=== PATIENT | female | born 1970 | race Caucasian/White ===

== ENCOUNTER 2017-03-25 10:18 | Inpatient (IN) | payer MEDICARE, OTHER ==
[2017-03-25] MEDS ORDERED: Ondansetron 4 MG Tab.DIS PO PRN (15:29)
[2017-03-25] MEDS ORDERED: Acetaminophen 325 MG Tab PO PRN (15:29)
[2017-03-25] MEDS ORDERED: Docusate Sodium 100 MG Cap PO PRN (15:36)
[2017-03-25] MEDS ORDERED: Hydrocortisone 1% Oint 28 GM Tube TOP PRN (15:36)
[2017-03-25] MEDS: Acetaminophen/oxyCODONE 325-5 MG Tab PO PRN ×2 (17:41→22:09)
[2017-03-25] MEDS: Ampicillin/Sulbactam Na 1.5 GM in Sodium Chloride 0.9% 100 ML IV SCH (17:42)
[2017-03-25] MEDS ORDERED: Non-Formulary Medication 1 Each (Gabapentin 800 MG) PO SCH (20:00)
[2017-03-25] MEDS ORDERED: buPROPion 100 MG Tab.SR PO SCH (20:00)
[2017-03-25] MEDS: Gabapentin 300 MG Cap PO SCH (20:29)
[2017-03-25] MEDS: Topiramate 100 MG Tab PO SCH (20:29)
[2017-03-25] MEDS: buPROPion 150 MG Tab.SR PO SCH (20:30)
[2017-03-25] MEDS: traZODone 50 MG Tab PO SCH (20:30)
[2017-03-25] MEDS: Gabapentin 100 MG Cap PO SCH (20:31)
[2017-03-25] MEDS: Amitriptyline 25 MG Tab PO SCH (20:31)
[2017-03-25] MEDS: CHANTIX 1 MG PO SCH (20:33)
[2017-03-25] MEDS: hydrOXYzine HCl 25 MG Tab PO PRN (22:08)
[2017-03-26] MEDS: Ampicillin/Sulbactam Na 1.5 GM in Sodium Chloride 0.9% 100 ML IV SCH ×5 (00:07→23:22)
[2017-03-26] MEDS: hydrOXYzine HCl 25 MG Tab PO PRN ×3 (06:04→19:44)
[2017-03-26] MEDS: Acetaminophen/oxyCODONE 325-5 MG Tab PO PRN ×3 (06:05→19:44)
[2017-03-26] MEDS: Gabapentin 300 MG Cap PO SCH ×3 (08:35→19:42)
[2017-03-26] MEDS: Aspirin 81 MG Tab.EC PO SCH (08:36)
[2017-03-26] MEDS: Gabapentin 100 MG Cap PO SCH ×3 (08:36→19:43)
[2017-03-26] MEDS: buPROPion 150 MG Tab.SR PO SCH ×2 (08:37→19:42)
[2017-03-26] MEDS: Topiramate 100 MG Tab PO SCH ×2 (08:38→19:43)
[2017-03-26] MEDS: CHANTIX 1 MG PO SCH ×2 (08:42→20:35)
--- NOTE | 2017-03-26 09:09 | PCM.HP ---
H&P History of Present Illness - General Date of Service: 03/26/17 Admit Problem/Dx: Admission Diagnosis/Problem Admission Diagnosis/Problem Status post total knee replacement, right Source of Information: Patient, Old Records History Limitations: Reports: No Limitations - History of Present Illness Initial Comments - Free Text/Narative: Patient admitted swing bed yesterday afternoon s/p right total knee replacement. Had surgery in [place] by Dr. Edmonds on March 17. Was noted to have a sore red pustule to her right inner thigh on Friday and was concerning for infection. Incision and drainage done to the area and culture obtained in [place]. No results noted yet from the culture. Was started on Unasyn and Vancomycin for this infection but was not felt to be related to her surgery. Transferred to [facility] [facility] for ongoing rehab, pain control and IV antibiotics. Has PICC line intact. Location: Reports: Lower Extremity, Right (surgical site and open wound to thigh ) Quality: Reports: Throbbing Severity: Severe Associated Symptoms: Reports: Loss of Appetite. Denies: Chest Pain, Cough, Fever/Chills, Nausea/Vomiting, Shortness of Breath, Weakness Right Leg Pain Score (Numeric/FACES): 8 - Related Data Allergies/Adverse Reactions: Allergies Allergy/AdvReac Type Severity Reaction Status Date / Time Sulfa (Sulfonamide Allergy Cannot Verified 03/25/17 10:51 Antibiotics) Remember Home Medications: Home Meds clonazePAM [Clonazepam] 1 mg PO TID PRN 12/06/15 [History] Amitriptyline HCl [Amitriptyline HCl] 100 mg PO BEDTIME 03/25/17 [History] Aspirin [Ecotrin] 81 mg PO DAILY 03/25/17 [History] Docusate Sodium [Colace] 100 mg PO BEDTIME PRN 03/25/17 [History] Eszopiclone 3 mg PO BEDTIME PRN 03/25/17 [History] Gabapentin [Neurontin] 800 mg PO TID 03/25/17 [History] Hydrocortisone Acetate [Hydrocortisone] 1 applic TOP QID PRN 03/25/17 [History] Topiramate [Topiramate] 25 mg PO BID 03/25/17 [History] Varenicline Tartrate [Chantix] 1 mg PO BID 03/25/17 [History] buPROPion HCl [Wellbutrin SR] 150 mg PO BID 03/25/17 [History] hydrOXYzine Pamoate [Hydroxyzine Pamoate] 50 mg PO Q6H PRN 03/25/17 [History] oxyCODONE HCl/Acetaminophen [oxyCODONE-Acetaminophen 5-325] 1 - 2 tab PO Q4H PRN 03/25/17 [History] traZODone 100 mg PO BEDTIME 03/25/17 [History] Past Medical History Gastrointestinal History: Reports: Chronic Diarrhea, Diverticulosis Genitourinary History: Reports: None [employer] History: Reports: Dysfunctional Uterine Bleeding, Endometriosis, Polycystic Ovaries Musculoskeletal History: Reports: Back Pain, Chronic, Fracture, Fibromyalgia, Neck Pain, Chronic, Osteoarthritis Neurological History: Reports: Neuropathy, Peripheral Psychiatric History: Reports: Anxiety, Bipolar, Depression, Panic Attack Endocrine/Metabolic History: Reports: Obesity/BMI 30+ Dermatologic History: Reports: Eczema - Past Surgical History HEENT Surgical History: Reports: Oral Surgery, Tonsillectomy GI Surgical History: Reports: Colonoscopy, Polypectomy Female Surgical History: Reports: Hysterectomy Endocrine Surgical History: Reports: None Neurological Surgical History: Reports: None Musculoskeletal Surgical History: Reports: Arthroscopic Knee, Knee Replacement Dermatological Surgical History: Reports: None Social & Family History - Family History Family Medical History: Noncontributory - Tobacco Use Smoking Status *Q: Former Smoker Used Tobacco, but Quit: Yes Month Tobacco Last Used: february - Caffeine Use Caffeine Use: Reports: None - Recreational Drug Use Recreational Drug Use: No H&P Review of Systems - Review of Systems: Review Of Systems: See Below General: Reports: Weakness, Fatigue, Decreased Appetite. Denies: Fever, Chills , Malaise HEENT: Reports: No Symptoms Pulmonary: Denies: Shortness of Breath, Cough Cardiovascular: Denies: Chest Pain, Lightheadedness Gastrointestinal: Denies: Abdominal Pain, Constipation, Hematochezia, Melena, Nausea, Vomiting Genitourinary: Reports: No Symptoms Musculoskeletal: Reports: Leg Pain, Joint Pain Skin: Reports: Wound, Other (incision) Psychiatric: Reports: No Symptoms Neurological: Reports: No Symptoms Exam - Exam Exam: See Below - Vital Signs Vital Signs: Last Vital Signs Temp 98 F 03/26/17 08:00 Pulse 84 03/26/17 08:00 Resp 18 03/26/17 08:00 BP 100/52 L 10/11/17 08:00 Pulse Ox 99 03/26/17 08:00 Weight: 297 lb 4.8 oz - Exam General: Alert, Oriented HEENT: Mucosa Moist & [place], Posterior Pharynx Clear Neck: Supple Lungs: Clear to Auscultation, Normal Respiratory Effort Cardiovascular: Regular Rate, Regular Rhythm GI/Abdominal Exam: Normal Bowel Sounds, Soft, Non-Tender Extremities: Joint Swelling, Leg Pain, Limited Range of Motion, Increased Warmth , Redness (Patient has intact bandage to right knee, limited range of motion due to surgery. Moderate amount of swelling noted. Right thigh is swollen, red and warm. Has large open area from incision and drainage to inner thigh. Packing present in wound at this time. ) Skin: Wound, Incision Neuro Extensive - Mental Status: Alert, Oriented x3 Psychiatric: Alert, Normal Affect, Normal Mood *Q Meaningful Use (ADM) - VTE *Q VTE Criteria *Q: - Stroke *Q Stroke Criteria *Q: - AMI *Q AMI Criteria *Q: - Problem List (1) Status post total right knee replacement SNOMED Code(s): 3854554741708 ICD Code: Z96.651 - PRESENCE OF RIGHT ARTIFICIAL KNEE JOINT Status: Acute Priority: High Current Visit: Yes Problem List Initiated/Reviewed/Updated: Yes Orders Last 24hrs: Active Orders 24 hr Category Date Time Status Patient Status [ADT] Routine ADT 03/25/17 15:29 Active Communication Order [RC] 0800 Care 03/25/17 15:29 Active Communication Order [RC] 0800 Care 03/25/17 15:29 Active Oxygen Therapy [RC] .PRN Care 03/25/17 15:29 Active Up With Assistance [RC] .PRN Care 03/25/17 15:29 Active Vital Signs [RC] 08,1999 Care 03/25/17 15:29 Active Wound Care [RC] Care 03/25/17 15:29 Active PT Evaluation and Treatment [CONS] Routine Cons 03/25/17 15:29 Active Regular Diet [DIET] Diet 03/25/17 Dinner Active CREATININE W/GFR [CHEM] Routine Lab 03/26/17 08:00 Ordered VANCOMYCIN TROUGH [CHEM] Routine Lab 03/26/17 08:00 Ordered Acetaminophen [Tylenol] Med 03/25/17 15:29 Active 650 mg PO Q4H PRN Acetaminophen/oxyCODONE [Percocet 325-5 MG] Med 03/25/17 15:36 Active 1 - 2 tab PO Q4H PRN Amitriptyline [Elavil] Med 03/25/17 20:00 Active 100 mg PO BEDTIME Ampicillin/Sulbactam Na [Unasyn] 1.5 gm Med 03/25/17 18:00 Active Sodium Chloride 0.9% [Normal Saline] 100 ml IV Q6H Aspirin [Halfprin] Med 03/26/17 08:00 Active 81 mg PO DAILY ClonazePAM [KlonoPIN] Med 03/25/17 15:36 Active 1 mg PO TID PRN Docusate Sodium [Colace] Med 03/25/17 15:36 Active 100 mg PO BEDTIME PRN Gabapentin [Neurontin] Med 03/25/17 20:00 Active 200 mg PO TID Gabapentin [Neurontin] Med 03/25/17 20:00 Active 600 mg PO TID Hydrocortisone [Hydrocortisone 1% Oint] Med 03/25/17 15:36 Active 0 gm TOP QID PRN Ondansetron [Zofran ODT] Med 03/25/17 15:29 Active 4 mg PO Q4H PRN Topiramate [Topamax] Med 03/25/17 20:00 Active 25 mg PO BID Vancomycin 1.25 gm Med 03/25/17 15:30 Pending Sodium Chloride 0.9% [Normal Saline] 250 ml IV Q12H Vancomycin Pharmacy to Dose [Pharmacy to Dose - Med 03/25/17 16:00 Pending Vancomycin] 1 dose .XX ASDIRECTED Varenicline Tartrate [Chantix] Med 03/25/17 20:00 Active 1 mg PO BID Zolpidem [Ambien] Med 03/25/17 15:36 Active 10 mg PO BEDTIME PRN buPROPion [Wellbutrin SR] Med 03/25/17 20:00 Active 150 mg PO BID hydrOXYzine HCl [Atarax] Med 03/25/17 15:36 Active 50 mg PO Q6H PRN traZODone Med 03/25/17 20:00 Active 100 mg PO BEDTIME Resuscitation Status Routine Resus Stat 03/25/17 15:29 Ordered Medication Orders Acetaminophen (Tylenol) 650 mg PO Q4H PRN PRN Reason: Pain (Mild 1-3)/fever Amitriptyline HCl (Elavil) 100 mg PO BEDTIME [facility] Last Admin: 03/25/17 20:31 Dose: 100 mg Aspirin (Halfprin) 81 mg PO DAILY [facility] Last Admin: 03/26/17 08:36 Dose: 81 mg Bupropion HCl (Wellbutrin Sr) 150 mg PO BID [facility] Last Admin: 03/26/17 08:37 Dose: 150 mg Admin: 03/25/17 20:30 Dose: 150 mg Clonazepam (Klonopin) 1 mg PO TID PRN PRN Reason: Anxiety Docusate Sodium (Colace) 100 mg PO BEDTIME PRN PRN Reason: Constipation Gabapentin (Neurontin) 600 mg PO TID [facility] Last Admin: 03/26/17 08:35 Dose: 600 mg Admin: 03/25/17 20:29 Dose: 600 mg Gabapentin (Neurontin) 200 mg PO TID [facility] Last Admin: 03/26/17 08:36 Dose: 200 mg Admin: 03/25/17 20:31 Dose: 200 mg Hydrocortisone (Hydrocortisone 1% Oint) 0 gm TOP QID PRN PRN Reason: skin Hydroxyzine HCl (Atarax) 50 mg PO Q6H PRN PRN Reason: Anxiety Last Admin: 03/26/17 06:04 Dose: 50 mg Admin: 03/25/17 22:08 Dose: 50 mg Ampicillin Sodium/Sulbactam (Sodium 1.5 gm/ Sodium Chloride) 100 mls @ 200 mls/ hr IV Q6H [facility] Last Admin: 03/26/17 06:03 Dose: 200 mls/hr Admin: 03/26/17 00:07 Dose: 200 mls/hr Admin: 03/25/17 17:42 Dose: 200 mls/hr Vancomycin HCl 1.25 gm/ Sodium (Chloride) 250 mls @ 167 mls/hr IV Q12H [facility] Ptom [Chantix] 1 Mg) 1 mg PO BID [facility] Last Admin: 03/26/17 08:42 Dose: 1 mg Admin: 03/25/17 20:33 Dose: Not Given Ondansetron HCl (Zofran Odt) 4 mg PO Q4H PRN PRN Reason: nausea, able to take PO Oxycodone/Acetaminophen (Percocet 325-5 Mg) 1 - 2 tab PO Q4H PRN PRN Reason: Pain Last Admin: 03/26/17 06:05 Dose: 2 tab Admin: 03/25/17 22:09 Dose: 2 tab Admin: 03/25/17 17:41 Dose: 2 tab Topiramate (Topamax) 25 mg PO BID [facility] Last Admin: 03/26/17 08:38 Dose: 25 mg Admin: 03/25/17 20:29 Dose: 25 mg Trazodone HCl (Trazodone) 100 mg PO BEDTIME [facility] Last Admin: 03/25/17 20:30 Dose: 100 mg Vancomycin HCl (Pharmacy To Dose - Vancomycin) 1 dose .XX ASDIRECTED [facility] Zolpidem Tartrate (Ambien) 10 mg PO BEDTIME PRN PRN Reason: Insomnia Assessment/Plan Comment:: S/P right total knee infected carbuncle to right thigh Plan: Continue with PT Percocet for pain Wet to dry dressings to thigh Maintain PICC line IV Vancomycin and Unasyn as directed
[2017-03-26] MEDS: Amitriptyline 25 MG Tab PO SCH (19:42)
[2017-03-26] MEDS: traZODone 50 MG Tab PO SCH (20:35)
[2017-03-27] MEDS: Ampicillin/Sulbactam Na 1.5 GM in Sodium Chloride 0.9% 100 ML IV SCH ×4 (05:34→23:38)
[2017-03-27] MEDS: hydrOXYzine HCl 25 MG Tab PO PRN (05:41)
[2017-03-27] MEDS: Acetaminophen/oxyCODONE 325-5 MG Tab PO PRN ×3 (05:41→20:35)
[2017-03-27] MEDS: Gabapentin 300 MG Cap PO SCH ×3 (08:51→20:33)
[2017-03-27] MEDS: Aspirin 81 MG Tab.EC PO SCH (08:51)
[2017-03-27] MEDS: buPROPion 150 MG Tab.SR PO SCH ×2 (08:51→20:33)
[2017-03-27] MEDS: Topiramate 100 MG Tab PO SCH ×2 (08:51→20:35)
[2017-03-27] MEDS: Gabapentin 100 MG Cap PO SCH ×3 (08:51→20:34)
[2017-03-27] MEDS: CHANTIX 1 MG PO SCH ×2 (08:55→20:38)
[2017-03-27] MEDS: traZODone 50 MG Tab PO SCH (20:33)
[2017-03-27] MEDS: Amitriptyline 25 MG Tab PO SCH (20:34)
[2017-03-27] MEDS: ClonazePAM 1 MG Tab PO PRN (20:43)
[2017-03-27] MEDS: Zolpidem 5 MG Tab PO PRN (20:44)
[2017-03-28] MEDS: Ampicillin/Sulbactam Na 1.5 GM in Sodium Chloride 0.9% 100 ML IV SCH ×3 (06:24→17:58)
[2017-03-28] MEDS: Aspirin 81 MG Tab.EC PO SCH (09:09)
[2017-03-28] MEDS: Gabapentin 100 MG Cap PO SCH ×3 (09:09→20:05)
[2017-03-28] MEDS: Gabapentin 300 MG Cap PO SCH ×3 (09:10→20:05)
[2017-03-28] MEDS: buPROPion 150 MG Tab.SR PO SCH ×2 (09:10→20:03)
[2017-03-28] MEDS: Topiramate 100 MG Tab PO SCH ×2 (09:11→20:03)
[2017-03-28] MEDS: Acetaminophen/oxyCODONE 325-5 MG Tab PO PRN ×3 (09:12→20:10)
[2017-03-28] MEDS: CHANTIX 1 MG PO SCH ×2 (09:30→20:21)
[2017-03-28] MEDS: ClonazePAM 1 MG Tab PO PRN (17:23)
[2017-03-28] MEDS: traZODone 50 MG Tab PO SCH (20:05)
[2017-03-28] MEDS: Amitriptyline 25 MG Tab PO SCH (20:06)
[2017-03-28] MEDS: Zolpidem 5 MG Tab PO PRN (21:07)
[2017-03-29] MEDS: Ampicillin/Sulbactam Na 1.5 GM in Sodium Chloride 0.9% 100 ML IV SCH ×5 (00:04→23:36)
[2017-03-29] MEDS: Acetaminophen/oxyCODONE 325-5 MG Tab PO PRN ×4 (00:10→21:10)
[2017-03-29] MEDS: Topiramate 100 MG Tab PO SCH ×2 (08:13→21:13)
[2017-03-29] MEDS: buPROPion 150 MG Tab.SR PO SCH ×2 (08:13→21:24)
[2017-03-29] MEDS: Aspirin 81 MG Tab.EC PO SCH (08:14)
[2017-03-29] MEDS: Gabapentin 100 MG Cap PO SCH ×3 (08:14→21:12)
[2017-03-29] MEDS: Gabapentin 300 MG Cap PO SCH ×3 (08:15→21:13)
[2017-03-29] MEDS: CHANTIX 1 MG PO SCH ×2 (08:16→21:14)
[2017-03-29] MEDS: ClonazePAM 1 MG Tab PO PRN ×2 (14:46→21:51)
[2017-03-29] MEDS: Amitriptyline 25 MG Tab PO SCH (21:12)
[2017-03-29] MEDS: traZODone 50 MG Tab PO SCH (21:12)
[2017-03-29] MEDS: Zolpidem 5 MG Tab PO PRN (22:41)
[2017-03-30] MEDS: Ampicillin/Sulbactam Na 1.5 GM in Sodium Chloride 0.9% 100 ML IV SCH ×4 (06:21→23:35)
[2017-03-30] MEDS: Aspirin 81 MG Tab.EC PO SCH (08:26)
[2017-03-30] MEDS: Gabapentin 100 MG Cap PO SCH ×3 (08:26→20:50)
[2017-03-30] MEDS: Topiramate 100 MG Tab PO SCH ×2 (08:27→20:51)
[2017-03-30] MEDS: buPROPion 150 MG Tab.SR PO SCH ×2 (08:27→20:53)
[2017-03-30] MEDS: CHANTIX 1 MG PO SCH ×2 (08:28→20:53)
[2017-03-30] MEDS: Gabapentin 300 MG Cap PO SCH ×3 (08:28→20:51)
[2017-03-30] MEDS: Acetaminophen/oxyCODONE 325-5 MG Tab PO PRN ×2 (12:52→20:50)
[2017-03-30] MEDS: ClonazePAM 1 MG Tab PO PRN (20:49)
[2017-03-30] MEDS: Zolpidem 5 MG Tab PO PRN (20:49)
[2017-03-30] MEDS: Amitriptyline 25 MG Tab PO SCH (20:51)
[2017-03-30] MEDS: traZODone 50 MG Tab PO SCH (20:52)
[2017-03-31] MEDS: Ampicillin/Sulbactam Na 1.5 GM in Sodium Chloride 0.9% 100 ML IV SCH ×4 (06:30→23:07)
[2017-03-31] MEDS: Topiramate 100 MG Tab PO SCH ×2 (07:50→20:18)
[2017-03-31] MEDS: Gabapentin 100 MG Cap PO SCH ×3 (07:50→20:17)
[2017-03-31] MEDS: Acetaminophen/oxyCODONE 325-5 MG Tab PO PRN ×2 (07:51→18:00)
[2017-03-31] MEDS: Aspirin 81 MG Tab.EC PO SCH (07:51)
[2017-03-31] MEDS: Gabapentin 300 MG Cap PO SCH ×3 (07:54→20:17)
[2017-03-31] MEDS: CHANTIX 1 MG PO SCH ×2 (07:58→20:21)
[2017-03-31] MEDS: buPROPion 150 MG Tab.SR PO SCH ×2 (08:10→20:20)
[2017-03-31] MEDS: hydrOXYzine HCl 25 MG Tab PO PRN ×2 (08:10→18:02)
[2017-03-31] MEDS: Amitriptyline 25 MG Tab PO SCH (20:16)
[2017-03-31] MEDS: traZODone 50 MG Tab PO SCH (20:19)
[2017-03-31] MEDS: ClonazePAM 1 MG Tab PO PRN (20:31)
[2017-03-31] MEDS: Zolpidem 5 MG Tab PO PRN (21:56)
[2017-04-01] MEDS: Ampicillin/Sulbactam Na 1.5 GM in Sodium Chloride 0.9% 100 ML IV SCH ×4 (06:10→23:01)
[2017-04-01] MEDS: hydrOXYzine HCl 25 MG Tab PO PRN ×2 (08:10→20:04)
[2017-04-01] MEDS: Aspirin 81 MG Tab.EC PO SCH (08:10)
[2017-04-01] MEDS: Topiramate 100 MG Tab PO SCH ×2 (08:10→19:52)
[2017-04-01] MEDS: Gabapentin 100 MG Cap PO SCH ×3 (08:11→19:50)
[2017-04-01] MEDS: buPROPion 150 MG Tab.SR PO SCH ×2 (08:12→19:51)
[2017-04-01] MEDS: Gabapentin 300 MG Cap PO SCH ×3 (08:12→19:50)
[2017-04-01] MEDS: Acetaminophen/oxyCODONE 325-5 MG Tab PO PRN ×3 (08:13→20:04)
[2017-04-01] MEDS: CHANTIX 1 MG PO SCH ×2 (08:14→19:52)
[2017-04-01] MEDS: Amitriptyline 25 MG Tab PO SCH (19:51)
[2017-04-01] MEDS: traZODone 50 MG Tab PO SCH (19:51)
[2017-04-01] MEDS: ClonazePAM 1 MG Tab PO PRN (19:59)
[2017-04-01] MEDS: Zolpidem 5 MG Tab PO PRN (21:49)
[2017-04-02] MEDS: Ampicillin/Sulbactam Na 1.5 GM in Sodium Chloride 0.9% 100 ML IV SCH ×3 (05:31→17:51)
[2017-04-02] MEDS: Aspirin 81 MG Tab.EC PO SCH (07:28)
[2017-04-02] MEDS: Gabapentin 100 MG Cap PO SCH ×3 (07:28→20:59)
[2017-04-02] MEDS: Gabapentin 300 MG Cap PO SCH ×3 (07:28→20:58)
[2017-04-02] MEDS: buPROPion 150 MG Tab.SR PO SCH ×2 (07:29→20:59)
[2017-04-02] MEDS: Topiramate 100 MG Tab PO SCH ×2 (07:29→20:58)
[2017-04-02] MEDS: hydrOXYzine HCl 25 MG Tab PO PRN ×2 (07:30→14:09)
[2017-04-02] MEDS: Acetaminophen/oxyCODONE 325-5 MG Tab PO PRN ×3 (07:30→20:57)
[2017-04-02] MEDS: CHANTIX 1 MG PO SCH ×2 (07:30→21:01)
[2017-04-02] MEDS: Zolpidem 5 MG Tab PO PRN (20:57)
[2017-04-02] MEDS: ClonazePAM 1 MG Tab PO PRN (20:58)
[2017-04-02] MEDS: Amitriptyline 25 MG Tab PO SCH (20:58)
[2017-04-02] MEDS: traZODone 50 MG Tab PO SCH (20:59)
[2017-04-03] MEDS: Ampicillin/Sulbactam Na 1.5 GM in Sodium Chloride 0.9% 100 ML IV SCH ×5 (01:24→23:37)
[2017-04-03] MEDS: buPROPion 150 MG Tab.SR PO SCH ×2 (08:57→21:04)
[2017-04-03] MEDS: Gabapentin 100 MG Cap PO SCH ×3 (08:57→21:06)
[2017-04-03] MEDS: Gabapentin 300 MG Cap PO SCH ×3 (08:57→21:03)
[2017-04-03] MEDS: Aspirin 81 MG Tab.EC PO SCH (08:57)
[2017-04-03] MEDS: Topiramate 100 MG Tab PO SCH ×2 (08:57→21:05)
[2017-04-03] MEDS: CHANTIX 1 MG PO SCH ×2 (09:00→21:06)
[2017-04-03] MEDS: Acetaminophen/oxyCODONE 325-5 MG Tab PO PRN ×2 (13:40→21:04)
[2017-04-03] MEDS: Zolpidem 5 MG Tab PO PRN (21:04)
[2017-04-03] MEDS: ClonazePAM 1 MG Tab PO PRN (21:04)
[2017-04-03] MEDS: traZODone 50 MG Tab PO SCH (21:04)
[2017-04-03] MEDS: Amitriptyline 25 MG Tab PO SCH (21:05)
[2017-04-04] MEDS: Ampicillin/Sulbactam Na 1.5 GM in Sodium Chloride 0.9% 100 ML IV SCH ×4 (06:11→23:50)
[2017-04-04] MEDS: Gabapentin 300 MG Cap PO SCH ×3 (08:27→19:55)
[2017-04-04] MEDS: Gabapentin 100 MG Cap PO SCH ×3 (08:28→19:55)
[2017-04-04] MEDS: Aspirin 81 MG Tab.EC PO SCH (08:28)
[2017-04-04] MEDS: buPROPion 150 MG Tab.SR PO SCH ×2 (08:28→19:55)
[2017-04-04] MEDS: Topiramate 100 MG Tab PO SCH ×2 (08:28→19:55)
[2017-04-04] MEDS: CHANTIX 1 MG PO SCH ×2 (08:31→19:59)
[2017-04-04] MEDS: Acetaminophen/oxyCODONE 325-5 MG Tab PO PRN ×2 (10:07→14:21)
[2017-04-04] MEDS: Amitriptyline 25 MG Tab PO SCH (19:55)
[2017-04-04] MEDS: traZODone 50 MG Tab PO SCH (19:56)
[2017-04-04] MEDS: Zolpidem 5 MG Tab PO PRN (20:07)
[2017-04-04] MEDS: ClonazePAM 1 MG Tab PO PRN (20:08)
[2017-04-05] MEDS: Ampicillin/Sulbactam Na 1.5 GM in Sodium Chloride 0.9% 100 ML IV SCH ×3 (05:55→17:34)
[2017-04-05] MEDS: Gabapentin 100 MG Cap PO SCH ×3 (08:05→19:53)
[2017-04-05] MEDS: Topiramate 100 MG Tab PO SCH ×2 (08:05→19:51)
[2017-04-05] MEDS: Gabapentin 300 MG Cap PO SCH ×3 (08:05→19:53)
[2017-04-05] MEDS: buPROPion 150 MG Tab.SR PO SCH ×2 (08:06→19:53)
[2017-04-05] MEDS: Aspirin 81 MG Tab.EC PO SCH (08:06)
[2017-04-05] MEDS: CHANTIX 1 MG PO SCH ×2 (08:11→19:57)
[2017-04-05] MEDS: Acetaminophen/oxyCODONE 325-5 MG Tab PO PRN (16:28)
[2017-04-05] MEDS: traZODone 50 MG Tab PO SCH (19:52)
[2017-04-05] MEDS: Zolpidem 5 MG Tab PO PRN (19:52)
[2017-04-05] MEDS: ClonazePAM 1 MG Tab PO PRN (19:53)
[2017-04-05] MEDS: Amitriptyline 25 MG Tab PO SCH (19:53)
[2017-04-06] MEDS: Ampicillin/Sulbactam Na 1.5 GM in Sodium Chloride 0.9% 100 ML IV SCH ×4 (00:06→17:49)
[2017-04-06] MEDS: Acetaminophen/oxyCODONE 325-5 MG Tab PO PRN ×2 (00:09→13:19)
[2017-04-06] MEDS: buPROPion 150 MG Tab.SR PO SCH ×2 (08:54→20:41)
[2017-04-06] MEDS: Gabapentin 300 MG Cap PO SCH ×3 (08:54→20:42)
[2017-04-06] MEDS: Aspirin 81 MG Tab.EC PO SCH (08:54)
[2017-04-06] MEDS: Gabapentin 100 MG Cap PO SCH ×3 (08:54→20:42)
[2017-04-06] MEDS: Topiramate 100 MG Tab PO SCH ×2 (08:55→20:41)
[2017-04-06] MEDS: CHANTIX 1 MG PO SCH ×2 (08:57→20:42)
[2017-04-06] MEDS: traZODone 50 MG Tab PO SCH (20:41)
[2017-04-06] MEDS: ClonazePAM 1 MG Tab PO PRN (20:41)
[2017-04-06] MEDS: Amitriptyline 25 MG Tab PO SCH (20:41)
[2017-04-06] MEDS: Zolpidem 5 MG Tab PO PRN (20:42)
[2017-04-07] MEDS: Ampicillin/Sulbactam Na 1.5 GM in Sodium Chloride 0.9% 100 ML IV SCH ×5 (00:17→23:11)
[2017-04-07] MEDS: Acetaminophen/oxyCODONE 325-5 MG Tab PO PRN ×2 (08:17→23:10)
[2017-04-07] MEDS: Gabapentin 100 MG Cap PO SCH ×3 (08:17→20:00)
[2017-04-07] MEDS: Aspirin 81 MG Tab.EC PO SCH (08:18)
[2017-04-07] MEDS: Topiramate 100 MG Tab PO SCH ×2 (08:18→20:01)
[2017-04-07] MEDS: buPROPion 150 MG Tab.SR PO SCH ×2 (08:18→19:59)
[2017-04-07] MEDS: Gabapentin 300 MG Cap PO SCH ×3 (08:19→19:59)
[2017-04-07] MEDS: CHANTIX 1 MG PO SCH ×2 (08:22→20:01)
[2017-04-07] MEDS: traZODone 50 MG Tab PO SCH (19:57)
[2017-04-07] MEDS: Amitriptyline 25 MG Tab PO SCH (19:58)
[2017-04-07] MEDS: ClonazePAM 1 MG Tab PO PRN (21:29)
[2017-04-07] MEDS: Zolpidem 5 MG Tab PO PRN (21:29)
[2017-04-08] MEDS: Ampicillin/Sulbactam Na 1.5 GM in Sodium Chloride 0.9% 100 ML IV SCH (05:38)
[2017-04-08] MEDS: Topiramate 100 MG Tab PO SCH ×2 (08:30→19:37)
[2017-04-08] MEDS: Gabapentin 300 MG Cap PO SCH ×3 (08:30→19:37)
[2017-04-08] MEDS: Acetaminophen/oxyCODONE 325-5 MG Tab PO PRN (08:31)
[2017-04-08] MEDS: buPROPion 150 MG Tab.SR PO SCH ×2 (08:31→19:37)
[2017-04-08] MEDS: Aspirin 81 MG Tab.EC PO SCH (08:31)
[2017-04-08] MEDS: CHANTIX 1 MG PO SCH ×2 (08:33→19:40)
[2017-04-08] MEDS: Gabapentin 100 MG Cap PO SCH ×3 (08:33→19:37)
[2017-04-08] MEDS ORDERED: ClonazePAM 1 MG Tab PO ONE (14:50)
--- NOTE | 2017-04-08 15:43 | PCM.PN ---
- General Info Date of Service: 04/08/17 Admission Dx/Problem (Free Text): Admission Diagnosis/Problem Admission Diagnosis/Problem Status post total knee replacement, right Functional Status: Reports: Pain Controlled, Tolerating Diet, Ambulating - Review of Systems General: Reports: Weakness HEENT: Reports: No Symptoms Pulmonary: Denies: Shortness of Breath, Cough Cardiovascular: Reports: Edema. Denies: Chest Pain, Lightheadedness Gastrointestinal: Denies: Abdominal Pain, Nausea, Vomiting Musculoskeletal: Reports: Joint Pain Skin: Reports: Other (wound to right groin/incision to right knee) - Patient Data Vitals - Most Recent: Last Vital Signs Temp 97.9 F 04/08/17 08:00 Pulse 79 04/08/17 08:00 Resp 20 04/08/17 08:00 BP 126/77 04/08/17 08:00 Pulse Ox 95 04/08/17 08:00 Weight - Most Recent: 267 lb Med Orders - Current: Current Medications Acetaminophen (Tylenol) 650 mg PO Q4H PRN PRN Reason: Pain (Mild 1-3)/fever Amitriptyline HCl (Elavil) 100 mg PO BEDTIME [facility] Last Admin: 04/07/17 19:58 Dose: 100 mg Amoxicillin/Clavulanate Potassium (Augmentin 875 Mg/125 Mg) 1 tab PO BIDMEALS [facility] Aspirin (Halfprin) 81 mg PO DAILY [facility] Last Admin: 04/08/17 08:31 Dose: 81 mg Bupropion HCl (Wellbutrin Sr) 150 mg PO BID [facility] Last Admin: 04/08/17 08:31 Dose: 150 mg Clonazepam (Klonopin) 1 mg PO 0900,1400,2000 [facility] Docusate Sodium (Colace) 100 mg PO BEDTIME PRN PRN Reason: Constipation Gabapentin (Neurontin) 600 mg PO TID [facility] Last Admin: 04/08/17 13:51 Dose: 600 mg Gabapentin (Neurontin) 200 mg PO TID [facility] Last Admin: 04/08/17 13:51 Dose: 200 mg Heparin Sodium (Porcine) (Heparin Lock Flush 100 Units/Ml) 500 units FLUSH ASDIRECTED PRN PRN Reason: IV Use Last Admin: 04/06/17 17:49 Dose: 500 units Hydrocortisone (Hydrocortisone 1% Oint) 0 gm TOP QID PRN PRN Reason: skin Hydroxyzine HCl (Atarax) 50 mg PO Q6H PRN PRN Reason: Anxiety Last Admin: 04/02/17 14:09 Dose: 50 mg Vancomycin HCl 750 mg/ Sodium (Chloride) 250 mls @ 167 mls/hr IV Q12H [facility] Last Admin: 04/08/17 10:19 Dose: 167 mls/hr Ptom [Chantix] 1 Mg) 1 mg PO BID [facility] Last Admin: 04/08/17 08:33 Dose: 1 mg Ondansetron HCl (Zofran Odt) 4 mg PO Q4H PRN PRN Reason: nausea, able to take PO Oxycodone/Acetaminophen (Percocet 325-5 Mg) 1 - 2 tab PO Q4H PRN PRN Reason: Pain Last Admin: 04/08/17 08:31 Dose: 2 tab Topiramate (Topamax) 25 mg PO BID [facility] Last Admin: 04/08/17 08:30 Dose: 25 mg Trazodone HCl (Trazodone) 100 mg PO BEDTIME [facility] Last Admin: 04/07/17 19:57 Dose: 100 mg Vancomycin HCl (Pharmacy To Dose - Vancomycin) 1 dose .XX ASDIRECTED [facility] Zolpidem Tartrate (Ambien) 10 mg PO BEDTIME PRN PRN Reason: Insomnia Last Admin: 04/07/17 21:29 Dose: 10 mg Discontinued Medications Clonazepam (Klonopin) 1 mg PO TID PRN PRN Reason: Anxiety Last Admin: 04/07/17 21:29 Dose: 1 mg Clonazepam (Klonopin) 1 mg PO ONETIME ONE Stop: 04/08/17 14:51 Heparin Sodium (Porcine) (Heparin Lock Flush 100 Units/Ml) Confirm Administered Dose 500 units .ROUTE .STK-MED ONE Stop: 04/03/17 18:19 Last Admin: 04/03/17 18:13 Dose: Not Given Ampicillin Sodium/Sulbactam (Sodium 1.5 gm/ Sodium Chloride) 100 mls @ 200 mls/ hr IV Q6H [facility] Last Admin: 04/08/17 05:38 Dose: 200 mls/hr Vancomycin HCl 1 gm/ Sodium (Chloride) 250 mls @ 167 mls/hr IV Q12H [facility] Last Admin: 04/02/17 10:29 Dose: 167 mls/hr Vancomycin HCl 1,000 mg/ (Sodium Chloride) 250 mls @ 167 mls/hr IV Q12H [facility] Stop: 04/04/17 13:00 Last Admin: 04/04/17 10:07 Dose: 167 mls/hr Vancomycin HCl 1,000 mg/ (Sodium Chloride) 250 mls @ 167 mls/hr IV Q24H [facility] Last Admin: 04/07/17 12:08 Dose: Not Given - Exam General: Alert, Oriented HEENT: Mucous Membr. Moist/[place] Neck: Supple Lungs: Clear to Auscultation, Normal Respiratory Effort Cardiovascular: Regular Rate, Regular Rhythm GI/Abdominal Exam: Normal Bowel Sounds, Soft, Non-Tender Extremities: Other (Patient's right knee does remain mildly swollen, incision healing well. No drainage or redness. Steri strips intact. Does have wound to right thigh, have been doing wet to dry dressing changes. Open area is much smaller and has less depth than on admit. continues to have serosanguinous drainage noted.) - Problem List & Annotations (1) Status post total right knee replacement SNOMED Code(s): 6514517860033 Code(s): Z96.651 - PRESENCE OF RIGHT ARTIFICIAL KNEE JOINT Status: Acute Priority: High Current Visit: Yes (2) Infected cyst of skin SNOMED Code(s): 595015658 Code(s): L72.9 - FOLLICULAR CYST OF THE SKIN AND SUBCUTANEOUS TISSUE, UNSP; L08.9 - LOCAL INFECTION OF THE SKIN AND SUBCUTANEOUS TISSUE, UNSP Status: Acute Current Visit: Yes - Problem List Review Problem List Initiated/Reviewed/Updated: Yes - My Orders Last 24 Hours: My Active Orders 04/08/17 17:30 Amoxicillin/Clavulanate K [Augmentin 875 MG/125 MG] 1 tab PO BIDMEALS - Assessment Assessment:: Right total knee replacement Infected cyst right groin - Plan Plan:: S/P right total knee infected carbuncle to right thigh Plan: Continue with PT Percocet for pain Wet to dry dressings to thigh Maintain PICC line IV Vancomycin and Unasyn as directed 04-08-2017 Patient doing well, slowing improving. Range of motion and ambulation improving with PT. Does continue to have wet to dry dressings to right groin, improving, getting smaller in size with much less drainage. Has been getting IV Vancomycin and Unasyn. Percocet for pain. Discharge plan has been discussed with patient. Would have difficulty with dressing changes and is cautious about driving with recent surgery. Will stop Unasyn, switch her to Augmentin. Continue with IV Vanco. PT. Pain control. Wet to dry dressings until full healing of the wound.
[2017-04-08] MEDS: Amoxicillin/Clavulanate K 875-125 MG Tab PO SCH (16:45)
[2017-04-08] MEDS: traZODone 50 MG Tab PO SCH (19:37)
[2017-04-08] MEDS: Amitriptyline 25 MG Tab PO SCH (19:39)
[2017-04-08] MEDS: ClonazePAM 1 MG Tab PO SCH (19:43)
[2017-04-08] MEDS: Zolpidem 5 MG Tab PO PRN (21:22)
[2017-04-09] MEDS: buPROPion 150 MG Tab.SR PO SCH ×2 (07:39→19:43)
[2017-04-09] MEDS: Gabapentin 100 MG Cap PO SCH ×3 (07:39→19:44)
[2017-04-09] MEDS: Topiramate 100 MG Tab PO SCH ×2 (07:39→19:45)
[2017-04-09] MEDS: Aspirin 81 MG Tab.EC PO SCH (07:40)
[2017-04-09] MEDS: Amoxicillin/Clavulanate K 875-125 MG Tab PO SCH ×2 (07:40→19:00)
[2017-04-09] MEDS: Gabapentin 300 MG Cap PO SCH ×3 (07:40→19:43)
[2017-04-09] MEDS: CHANTIX 1 MG PO SCH ×2 (07:40→19:45)
[2017-04-09] MEDS: ClonazePAM 1 MG Tab PO SCH ×3 (08:37→19:43)
[2017-04-09] MEDS: traZODone 50 MG Tab PO SCH (19:43)
[2017-04-09] MEDS: Amitriptyline 25 MG Tab PO SCH (19:44)
[2017-04-09] MEDS: Zolpidem 5 MG Tab PO PRN (21:44)
[2017-04-10] MEDS: Amoxicillin/Clavulanate K 875-125 MG Tab PO SCH ×2 (07:51→18:31)
[2017-04-10] MEDS: Gabapentin 300 MG Cap PO SCH ×3 (07:51→19:32)
[2017-04-10] MEDS: Aspirin 81 MG Tab.EC PO SCH (07:51)
[2017-04-10] MEDS: Gabapentin 100 MG Cap PO SCH ×3 (07:51→19:33)
[2017-04-10] MEDS: buPROPion 150 MG Tab.SR PO SCH ×2 (07:51→19:33)
[2017-04-10] MEDS: Topiramate 100 MG Tab PO SCH ×2 (07:51→19:32)
[2017-04-10] MEDS: CHANTIX 1 MG PO SCH ×2 (07:52→19:33)
[2017-04-10] MEDS: ClonazePAM 1 MG Tab PO SCH ×3 (08:24→19:37)
[2017-04-10] MEDS: traZODone 50 MG Tab PO SCH (19:32)
[2017-04-10] MEDS: Amitriptyline 25 MG Tab PO SCH (19:33)
[2017-04-10] MEDS: Zolpidem 5 MG Tab PO PRN (22:31)
[2017-04-11] MEDS: Topiramate 100 MG Tab PO SCH (07:31)
[2017-04-11] MEDS: Amoxicillin/Clavulanate K 875-125 MG Tab PO SCH (07:31)
[2017-04-11] MEDS: buPROPion 150 MG Tab.SR PO SCH (07:31)
[2017-04-11] MEDS: Aspirin 81 MG Tab.EC PO SCH (07:31)
[2017-04-11] MEDS: Gabapentin 300 MG Cap PO SCH ×2 (07:32→14:10)
[2017-04-11] MEDS: Gabapentin 100 MG Cap PO SCH ×2 (07:32→14:10)
[2017-04-11] MEDS: CHANTIX 1 MG PO SCH (07:33)
[2017-04-11] MEDS: ClonazePAM 1 MG Tab PO SCH ×2 (13:24→14:10)
[2017-04-11 13:40] VITALS: BP 84/49
--- NOTE | 2017-04-14 08:28 | DISCH ---
ADMISSION DIAGNOSES: 1. Status post incision and debridement, large right thigh abscess. 2. Status post right knee replacement. 3. Bipolar disorder. DISCHARGE DIAGNOSIS: 1. STATUS POST INCISION AND DEBRIDEMENT, LARGE RIGHT THIGH ABSCESS. 2. STATUS POST RIGHT KNEE REPLACEMENT. 3. BIPOLAR DISORDER. HISTORY: The patient is a 46-year-old who was admitted to our facility for long- term swing bed placement. She is status post a right total knee arthroplasty and postoperatively began having fevers and signs of sepsis. She had a large boil on her right thigh which needed open drainage and for a short time VAC placement. She came here for long-term antibiotic use and packing. Swing bed course: The patient did wonderful while here. Her wound is probably 25% of the size as it was on admit. She is able to pack it now on her own. We have gotten her off IV antibiotics. She is on oral Augmentin only at this time. She is still requiring some assistance with packing, but feels stable for discharge. It has been longer given her IV antibiotics. She is homebound and is unable to drive because of this and the need for ongoing nursing assessment of this wound. We are going to have Home Health see her for packing and dressing changes and I will see her back in the clinic in the next 2 weeks. COMPLICATIONS: During her stay were none. CONSULTATIONS: PT, OT, Home Health. DISPOSITION: Discharged home. SAMMY /[id number]
== END 2017-04-11 15:30 | disposition home health service (06) | DRG 561 ==
LOC: CC.MS 15:00 → UNDOADMIN 15:00 → CC.MS 15:29
PROVIDERS: ADMIT Family Medicine; ATTEND Family Medicine
DX: Z47.1 Aftercare following joint replacement surgery (principal); Z96.651 Presence of right artificial knee joint; Z48.89 Encounter for other specified surgical aftercare; L02.435 Carbuncle of right lower limb; F31.9 Bipolar disorder, unspecified; R19.7 Diarrhea, unspecified; M79.7 Fibromyalgia; G89.29 Other chronic pain; M54.2 Cervicalgia; G62.9 Polyneuropathy, unspecified; F41.9 Anxiety disorder, unspecified; E66.9 Obesity, unspecified; Z68.30 Body mass index [BMI] 30.0-30.9, adult; Z79.899 Other long term (current) drug therapy; Z79.891 Long term (current) use of opiate analgesic; Z79.82 Long term (current) use of aspirin
CPT/HCPCS: 36415; 80202; 82565; 97010-GP; 97110-GP; 97161-GP; A9270-GY; J0295; J1642; J3370; J7050

== ENCOUNTER 2017-07-29 11:22 | Observation (INO) | payer MEDICARE, OTHER ==
[2017-07-29] MEDS ORDERED: Ondansetron 4 MG Tab.DIS PO PRN (12:57)
[2017-07-29] MEDS ORDERED: Acetaminophen 325 MG Tab PO PRN (12:57)
[2017-07-29] MEDS ORDERED: ClonazePAM 1 MG Tab PO PRN (13:02)
[2017-07-29] MEDS ORDERED: Acetaminophen/oxyCODONE 325-5 MG Tab PO PRN (13:02)
[2017-07-29 13:40] LABS: CHLORIDE,CL 105 mEq/L (98-106); SODIUM,NA 140 mEq/L (136-145)
[2017-07-29] MEDS: Lactated Ringers 1,000 ML IV SCH (13:41)
[2017-07-29] MEDS: Pantoprazole 40 MG Vial IVPUSH SCH (14:09)
[2017-07-29] MEDS: Enoxaparin 40 MG/0.4 ML Syringe SUBCUT SCH (14:14)
[2017-07-29] MEDS: Ketorolac 30 MG/ML SDV IV PRN ×2 (14:15→23:24)
[2017-07-29] MEDS ORDERED: TOPIRAMATE 25 MG PO SCH (20:00)
[2017-07-29] MEDS ORDERED: buPROPion 150 MG Tab.SR PO SCH (20:00)
[2017-07-29] MEDS: GABAPENTIN 800 MG PO SCH (20:00)
[2017-07-30] MEDS: Lactated Ringers 1,000 ML IV SCH ×2 (03:49→17:16)
[2017-07-30] MEDS: CLONAZEPAM 1 MG PO PRN ×2 (08:12→16:10)
[2017-07-30] MEDS: BUPROPION 150 MG PO SCH ×2 (08:12→20:37)
[2017-07-30] MEDS: GABAPENTIN 800 MG PO SCH ×5 (08:12→21:45)
--- NOTE | 2017-07-30 09:22 | PCM.PN ---
- General Info Date of Service: 07/30/17 Admission Dx/Problem (Free Text): Myalgia/Myositis Functional Status: Reports: Tolerating Diet. Denies: Pain Controlled (states pain meds do not work so not taking them), Ambulating - Review of Systems General: Reports: Weakness, Fatigue, Malaise. Denies: Fever HEENT: Reports: No Symptoms Pulmonary: Denies: Shortness of Breath, Cough, Sputum Cardiovascular: Denies: Chest Pain, Edema, Lightheadedness Gastrointestinal: Reports: Abdominal Pain (groin pain). Denies: Nausea, Vomiting Genitourinary: Denies: Frequency (frequency has much improved) Musculoskeletal: Reports: Joint Pain (right hip pain) Skin: Reports: No Symptoms Neurological: Reports: No Symptoms - Patient Data Vitals - Most Recent: Last Vital Signs Temp 96.4 F 07/30/17 08:00 Pulse 83 07/30/17 08:00 Resp 19 07/30/17 08:00 BP 101/64 07/30/17 08:00 Pulse Ox 96 07/30/17 08:00 Weight - Most Recent: 294 lb 8 oz I&O - Last 24 Hours: Intake & Output 07/29/17 07/30/17 07/30/17 22:59 06:59 14:59 Intake Total 1000 Balance 1000 Lab Results Last 24 Hours: Laboratory Results - last 24 hr 07/29/17 07/29/17 07/29/17 Range/Units 12:57 13:20 13:22 WBC 10.1 H (5.0-10.0) 10^3/uL RBC 4.65 (4.00-5.50) 10^6/uL Hgb 14.0 (12.0-16.0) g/dL Hct 42.9 (37.0-47.0) % MCV 92.3 (82.0-94.0) fL MCH 30.1 (27.0-32.0) pg MCHC 32.6 L (33.0-38.0) g/dL RDW Coeff of [place] 14.2 (11.0-15.0) % Plt Count 323 (150-400) 10^3/uL Neut % (Auto) 65.7 (35-85) % Lymph % (Auto) 25.6 (10-55) % [place] % (Auto) 6.4 (0-16) % Eos % (Auto) 2.0 (0-5) % Baso % (Auto) 0.3 (0-3) % Neut # (Auto) 6.63 (1.80-7.00) 10^3/uL Lymph # (Auto) 2.58 (1.00-4.80) 10^3/uL [place] # (Auto) 0.65 (0.00-0.80) 10^3/uL Eos # (Auto) 0.20 (0.00-0.45) 10^3/uL Baso # (Auto) 0.03 10^3/uL Sodium 140 (136-145) mEq/L Potassium 4.8 (3.5-5.0) mEq/L Chloride 105 (98-106) mEq/L Carbon Dioxide 28 (21-32) mmol/L BUN 17 (7-18) mg/dL Creatinine 0.8 (0.6-1.0) mg/dL Est Cr Clr Drug Dosing 79.07 mL/min Estimated GFR (MDRD) > 60 (>=60) mL/min Glucose 109 H (75-99) mg/dL Calcium 9.0 (8.4-10.1) mg/dL Magnesium 2.2 (1.8-2.4) mg/dL Total Bilirubin 0.2 (0.0-1.0) mg/dL AST 22 (15-37) U/L ALT 34 (12-78) U/L Alkaline Phosphatase 61 (46-116) U/L Creatine Kinase 112 (21-215) U/L Troponin I < 0.017 (0.00-0.06) ng/mL C-Reactive Protein 1.2 H (0.2-0.8) mg/dL Total Protein 6.8 (6.4-8.2) g/dL Albumin 3.2 L (3.4-5.0) g/dL Urine Color Light yellow (YELLOW) Urine Appearance Clear (CLEAR) Urine pH 5.5 (4.5-8.0) Ur Specific Sod 1.015 (1.003-1.020) Urine Protein Negative (NEGATIVE) mg/dL Urine Glucose (UA) Negative (NEGATIVE) mg/dL Urine Ketones Negative (NEGATIVE) mg/dL Urine Occult Blood Negative (NEGATIVE) Urine Nitrite Negative (NEGATIVE) Urine Bilirubin Negative (NEGATIVE) Urine Urobilinogen 0.2 (0.2-1.0) EU/dL Ur Leukocyte Esterase Negative (NEGATIVE) Urine RBC 0-5 (0-5) /HPF Urine WBC Not seen (0-5) /HPF Ur Epithelial Cells Few H (NOT SEEN) /HPF Med Orders - Current: Current Medications Acetaminophen (Tylenol) 650 mg PO Q4H PRN PRN Reason: Pain (Mild 1-3)/fever Diazepam (Valium) 5 mg IVPUSH Q12H [facility] Enoxaparin Sodium (Lovenox) 40 mg SUBCUT Q24H [facility] Last Admin: 07/29/17 14:14 Dose: 40 mg Lactated Ringer's (Ringers, Lactated) 1,000 mls @ 75 mls/hr IV ASDIRECTED [facility] Last Admin: 07/30/17 03:49 Dose: 75 mls/hr Ketorolac Tromethamine (Toradol) 30 mg IV Q6H PRN PRN Reason: Pain (moderate 4-6) Last Admin: 07/29/17 23:24 Dose: 30 mg Non-Formulary Medication (Topiramate [Topiramate]) 25 mg PO BID [facility] Ondansetron HCl (Zofran Odt) 8 mg PO Q6H PRN PRN Reason: nausea, able to take PO Oxycodone/Acetaminophen (Percocet 325-5 Mg) 1 tab PO Q6H PRN PRN Reason: Pain Last Admin: 07/29/17 16:32 Dose: 1 tab Pantoprazole Sodium (Protonix Iv) 40 mg IVPUSH Q24H [facility] Last Admin: 07/29/17 14:09 Dose: 40 mg Gabapentin 800 Mg (Tab Ptom) 1 each PO TID [facility] Last Admin: 07/30/17 08:12 Dose: 1 each Bupropion Sr 150 Mg (Tab Ptom) 1 each PO BID [facility] Last Admin: 07/30/17 08:12 Dose: 1 each Clonazepam Tab 1 Mg (Ptom) 1 each PO TID PRN PRN Reason: Anxiety Last Admin: 07/30/17 08:12 Dose: 1 each Discontinued Medications Bupropion HCl (Wellbutrin Sr) 150 mg PO BID [facility] Last Admin: 07/29/17 20:01 Dose: 150 mg Clonazepam (Klonopin) 1 mg PO TID PRN PRN Reason: Anxiety Last Admin: 07/29/17 23:30 Dose: 1 mg - Exam General: Alert, Oriented HEENT: Mucous Membr. Moist/[place] Neck: Supple Lungs: Clear to Auscultation, Normal Respiratory Effort Cardiovascular: Regular Rate, Regular Rhythm GI/Abdominal Exam: Normal Bowel Sounds, Soft, Tender (right groin, pressure with palpation) Extremities: Normal Inspection, No Pedal Edema Skin: Warm, Dry Neurological: No New Focal Deficit - Problem List & Annotations (1) Myalgia and myositis SNOMED Code(s): 89866431 Code(s): FOF6225 - Status: Acute Priority: High Current Visit: Yes - Problem List Review Problem List Initiated/Reviewed/Updated: Yes - My Orders Last 24 Hours: My Active Orders 07/30/17 08:54 Abdomen Pelvis w Cont [CT] Routine 07/30/17 09:00 Diazepam [Valium] 5 mg IVPUSH Q12H - Assessment Assessment:: Myalgia and myositis - Plan Plan:: Patient having ongoing pain in right groin, feels pressure there in and in to her right hip. She has a palpable "lump" in her groin that is very tender. States is voiding less frequently, doesn't feel as dehydrated today. Does not feel the Toradol or Percocet are helping at all so isn't taking them. Ambulating short distances to the bathroom only, otherwise states movement causes more pain. She previous had xrays done in [place] which were negative. Will obtain a CT scan of the abdomen and pelvis. Start IV Valium. Follow up after results received.
[2017-07-30] MEDS: Enoxaparin 40 MG/0.4 ML Syringe SUBCUT SCH (14:44)
[2017-07-30] MEDS: Pantoprazole 40 MG Vial IVPUSH SCH (14:44)
[2017-07-30] MEDS: Diazepam 5 MG Tab PO SCH (21:51)
[2017-07-31] MEDS: Lactated Ringers 1,000 ML IV SCH (06:36)
[2017-07-31] MEDS: GABAPENTIN 800 MG PO SCH (07:58)
[2017-07-31] MEDS: Diazepam 5 MG Tab PO SCH (07:59)
[2017-07-31] MEDS: BUPROPION 150 MG PO SCH (07:59)
[2017-07-31] MEDS ORDERED: Ketorolac 30 MG/ML SDV IV SCH (09:25)
[2017-07-31 11:44] VITALS: BP 139/75
[2017-07-31] MEDS ORDERED: Ketorolac 60 MG/2 ML SDV IM ONE (11:47)
[2017-08-01] MEDS ORDERED: Pantoprazole 40 MG Vial IVPUSH SCH (07:00)
--- NOTE | 2017-08-03 21:20 | PCM.DCSUM1 ---
Discharge Summary - Hospital Course Free Text/Narrative:: Patient admitted by Dr. Agustin from clinic with myalgia, right groin pain. Patient had been experiencing increased pain in the right hip and having increased muscle pain. Had been seen in the [place] [facility] and had an xray of her hip which was normal. She had been experiencing increased urination and excessive thirst. [place] like she was dehydrated. Admitted for pain control and further work up. Labs ordered on admit, WBC normal at 10.1, CRP 1.2. UA negative. Started on IV fluids. - Discharge Data Discharge Date: 07/31/17 Discharge Disposition: Home, Self-Care 01 Condition: Fair - Discharge Diagnosis/Problem(s) (1) Myalgia and myositis SNOMED Code(s): 83602647 ICD Code: [id number] - Status: Acute Priority: High - Patient Summary/Data Complications: none Consults: Consultations 07/29/17 12:57 PT Evaluation and Treatment [CONS] Routine Hospital Course: Patient continues to have right groin pain, myalgias improved. She is hesitant to ambulate much and has pain with getting in and out of bed but is managing on her own albeit slowly. She had a CT scan of her abdomen and pelvis due to the right groin pain with no etiology for her pain. She admits her myalgias are improved after IV fluids. Is voiding less and feels her thirst level is controlled. Did not feel that Toradol nor Percocet were helping her pain. Valium IV did help for a short time, oral Valium not helping as well. Patient did want to be discharge home, felt she could manage her pain and increase her activity level better there. Was up with PT and did well with slow ambulation. - Patient Instructions Diet: Usual Diet as Tolerated Activity: As Tolerated Other/Special Instructions: See physical therapy as an outpatient for hip pain - Discharge Plan Prescriptions/Med Rec: Diazepam [Valium] 5 mg PO Q8H #30 tablet Ketorolac Tromethamine 10 mg PO Q6H #20 tablet Home Medications: Home Meds clonazePAM [Clonazepam] 1 mg PO TID PRN 12/06/15 [History] Gabapentin [Neurontin] 800 mg PO TID 03/25/17 [History] Hydrocortisone Acetate [Hydrocortisone] 1 applic TOP QID PRN 03/25/17 [History] Topiramate 25 mg PO BID 03/25/17 [History] buPROPion HCl [Wellbutrin SR] 150 mg PO BID 03/25/17 [History] oxyCODONE HCl/Acetaminophen [oxyCODONE-Acetaminophen 5-325] 1 tab PO Q6HR PRN [History] Ascorbic Acid [Vitamin C] 1,000 mg PO DAILY 07/29/17 [History] Calcium Carbonate/Vitamin D3 [Calcium 500 mg Chewable Tablet] 1,000 mg PO DAILY 07/29/17 [History] Cholecalciferol (Vitamin D3) [Vitamin D3] 5,000 unit PO DAILY 07/29/17 [History] Cyanocobalamin (Vitamin B-12) [Vitamin B-12] 1,000 mcg PO DAILY 07/29/17 [ History] Melatonin/Pyridoxine HCl (B6) [Melatonin 10 mg Tablet] 10 mg PO BEDTIME [History] Diazepam [Valium] 5 mg PO Q8H #30 tablet 07/31/17 [Rx] Ketorolac Tromethamine 10 mg PO Q6H #20 tablet 07/31/17 [Rx] Patient Handouts: Muscle Pain, Adult, Myositis [place] Referrals: Roque Agustin MD [Primary Care Provider] - (Follow up with Dr. Agustin in 2 weeks.) - Discharge Summary/Plan Comment DC Time >30 min.: No Discharge Summary/Plan Comment: Discharge home. Will continue with outpatient PT. Toradol and Valium for muscle and joint pain. Follow up with Dr. Agustin. - General Info Date of Service: 07/31/17 Admission Dx/Problem (Free Text: Myalgia/Myositis Functional Status: Reports: Tolerating Diet, Ambulating. Denies: Pain Controlled - Review of Systems General: Reports: Weakness, Malaise. Denies: Fever, Fatigue HEENT: Reports: No Symptoms Pulmonary: Denies: Shortness of Breath, Cough Cardiovascular: Denies: Chest Pain, Edema, Lightheadedness Gastrointestinal: Reports: No Symptoms Genitourinary: Reports: No Symptoms Musculoskeletal: Reports: Joint Pain Skin: Reports: No Symptoms Neurological: Reports: No Symptoms - Patient Data Vitals - Most Recent: Last Vital Signs Temp 97.4 F 07/31/17 11:43 Pulse 98 07/31/17 11:43 Resp 20 07/31/17 11:43 BP 139/75 07/31/17 11:43 Pulse Ox 98 07/31/17 11:43 Weight - Most Recent: 294 lb 8 oz Med Orders - Current: Current Medications Discontinued Medications Acetaminophen (Tylenol) 650 mg PO Q4H PRN PRN Reason: Pain (Mild 1-3)/fever Bupropion HCl (Wellbutrin Sr) 150 mg PO BID [facility] Last Admin: 07/29/17 20:01 Dose: 150 mg Clonazepam (Klonopin) 1 mg PO TID PRN PRN Reason: Anxiety Last Admin: 07/29/17 23:30 Dose: 1 mg Diazepam (Valium) 5 mg IVPUSH Q12H [facility] Last Admin: 07/30/17 10:50 Dose: Not Given Diazepam (Valium) 5 mg IVPUSH ONETIME ONE Stop: 07/30/17 09:39 Last Admin: 07/30/17 10:50 Dose: 5 mg Diazepam (Valium.) 5 mg PO BID [facility] Last Admin: 07/31/17 07:59 Dose: 5 mg Enoxaparin Sodium (Lovenox) 40 mg SUBCUT Q24H [facility] Last Admin: 07/30/17 14:44 Dose: 40 mg Lactated Ringer's (Ringers, Lactated) 1,000 mls @ 75 mls/hr IV ASDIRECTED [facility] Last Admin: 07/31/17 06:36 Dose: 75 mls/hr Ketorolac Tromethamine (Toradol) 30 mg IV Q6H PRN PRN Reason: Pain (moderate 4-6) Last Admin: 07/29/17 23:24 Dose: 30 mg Ketorolac Tromethamine (Toradol) 30 mg IV BID [facility] Last Admin: 07/31/17 12:38 Dose: Not Given Ketorolac Tromethamine (Toradol) 60 mg IM ONETIME ONE Stop: 07/31/17 11:48 Last Admin: 07/31/17 12:24 Dose: 60 mg Non-Formulary Medication (Topiramate [Topiramate]) 25 mg PO BID [facility] Ondansetron HCl (Zofran Odt) 8 mg PO Q6H PRN PRN Reason: nausea, able to take PO Oxycodone/Acetaminophen (Percocet 325-5 Mg) 1 tab PO Q6H PRN PRN Reason: Pain Last Admin: 07/29/17 16:32 Dose: 1 tab Pantoprazole Sodium (Protonix Iv) 40 mg IVPUSH Q24H [facility] Last Admin: 07/30/17 14:44 Dose: 40 mg Pantoprazole Sodium (Protonix Iv) 40 mg IVPUSH ACBREAKFAST [facility] Gabapentin 800 Mg (Tab Ptom) 1 each PO TID [facility] Last Admin: 07/31/17 07:58 Dose: 1 each Bupropion Sr 150 Mg (Tab Ptom) 1 each PO BID [facility] Last Admin: 07/31/17 07:59 Dose: 1 each Clonazepam Tab 1 Mg (Ptom) 1 each PO TID PRN PRN Reason: Anxiety Last Admin: 07/30/17 16:10 Dose: 1 each - Exam General: Reports: Alert, Oriented HEENT: Reports: Mucous Membr. Moist/[place] Neck: Reports: Supple Lungs: Reports: Clear to Auscultation, Normal Respiratory Effort Cardiovascular: Reports: Regular Rate, Regular Rhythm GI/Abdominal Exam: Normal Bowel Sounds, Soft, Non-Tender Extremities: Normal Inspection, Other (tender to righ tpelvic region) Skin: Reports: Warm, Dry Neurological: Reports: No New Focal Deficit *Q Meaningful Use (DIS) - VTE *Q VTE Criteria *Q: - Stroke *Q Stroke Criteria *Q: - AMI *Q AMI Criteria *Q:
== END 2017-07-31 13:17 | disposition home or self-care (01) ==
LOC: UNDOADMOB 11:22 → CC.MS 11:22
PROVIDERS: ADMIT Family Medicine; ATTEND Family Medicine
DX: M60.9 Myositis, unspecified (principal); F32.9 Major depressive disorder, single episode, unspecified; E66.01 Morbid (severe) obesity due to excess calories; Z96.659 Presence of unspecified artificial knee joint; Z88.2 Allergy status to sulfonamides; Z79.899 Other long term (current) drug therapy; F17.210 Nicotine dependence, cigarettes, uncomplicated
CPT/HCPCS: 36415; 70450; 74177; 80053; 81001; 82550; 83735; 84484; 85025; 86140; 93005; 96361 ×3; 96372 ×2; 96374; 96375 ×2; 96376 ×2; 97110 ×4; 97161; A9270 ×5; C9113 ×2; G0378 ×2; J1650 ×2; J1885 ×3; J3360; J7120 ×4; Q9967

== ENCOUNTER 2018-03-15 10:26 | Emergency (ER) | payer MEDICARE, OTHER ==
[2018-03-15 10:28] VITALS: BP 131/103
--- NOTE | 2018-03-15 11:00 | EDM.PDOC ---
ED HPI GENERAL MEDICAL PROBLEM - General Chief Complaint: Laceration Stated Complaint: dog bite Time Seen by Provider: 03/15/18 10:53 Source of Information: Reports: Patient History Limitations: Reports: No Limitations - History of Present Illness INITIAL COMMENTS - FREE TEXT/NARRATIVE: This patient is a 47 year old female that presents to the ER. Patient reports that she has two service dogs. She reports on is older and retiring, the other one is new service dog. The patent reports the dogs began to fight and she attempted to break the dogs up and got in between them. She reports the new dog bit her multiple times. Patient reports that in the process she fell to the ground. She denies hitting her head, loc, n, v, vision changes, neck pain, back pain. She reports bilateral hand pain. Patient has multiple puncture wounds consistent with dog bites. Onset: Today Duration: Hour(s): (1) Location: Reports: Upper Extremity, Left, Upper Extremity, Right Front/Back Body Image: 1 - ecchymosis. swelling. 2 - puncture wounds. pain, swelling, tenderness. 3 - tear/laceration. 4 - puncture wounds 5 - large abrasion. Severity: Moderate Improves with: Reports: Immobilization Worsens with: Reports: Movement Associated Symptoms: Denies: Confusion, Chest Pain, Cough, cough w sputum, Diaphoresis, Fever/Chills, Headaches, Loss of Appetite, Malaise, Nausea/Vomiting , Rash, Seizure, Shortness of Breath, Syncope, Weakness Hand Pain Score (Numeric/FACES): 10 - Related Data Allergies Allergy/AdvReac Type Severity Reaction Status Date / Time latex Allergy Blisters Verified 03/15/18 10:28 Sulfa (Sulfonamide Allergy Anaphylactic Verified 03/15/18 10:28 Antibiotics) Shock Home Meds: Home Meds clonazePAM [Clonazepam] 1 mg PO TID PRN 12/06/15 [History] Topiramate 25 mg PO BID 03/25/17 [History] buPROPion HCl [Wellbutrin SR] 150 mg PO BID 03/25/17 [History] diazePAM [Valium] 5 mg PO Q8H #30 tablet 02/15/18 [Rx] Eszopiclone [Lunesta] 4 mg PO BEDTIME 03/15/18 [History] Past Medical History Gastrointestinal History: Reports: Chronic Diarrhea, Diverticulosis Genitourinary History: Reports: Urinary Incontinence, Other (See Below) Other Genitourinary History: frequent orientation 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: Dysfunctional Uterine Bleeding, Endometriosis, Polycystic Ovaries Musculoskeletal History: Reports: Back Pain, Chronic, Fracture, Fibromyalgia, Neck Pain, Chronic, Osteoarthritis Neurological History: Reports: Neuropathy, Peripheral Psychiatric History: Reports: Anxiety, Bipolar, Depression, Panic Attack Endocrine/Metabolic History: Reports: Obesity/BMI 30+ Dermatologic History: Reports: Eczema - Past Surgical History HEENT Surgical History: Reports: Oral Surgery, Tonsillectomy GI Surgical History: Reports: Colonoscopy, Polypectomy Female Surgical History: Reports: Hysterectomy Endocrine Surgical History: Reports: None Neurological Surgical History: Reports: None Musculoskeletal Surgical History: Reports: Arthroscopic Knee, Knee Replacement Social & Family History - Family History Family Medical History: Noncontributory GI: Reports: Cirrhosis - Tobacco Use Smoking Status *Q: Current Every Day Smoker Years of Tobacco use: 35 Packs/Tins Daily: 0.5 - Caffeine Use Caffeine Use: Reports: Coffee, Soda - Recreational Drug Use Recreational Drug Use: No ED ROS GENERAL - Review of Systems Review Of Systems: See Below Constitutional: Reports: No Symptoms HEENT: Reports: No Symptoms Respiratory: Reports: No Symptoms Cardiovascular: Reports: No Symptoms Endocrine: Reports: No Symptoms GI/Abdominal: Reports: No Symptoms : Reports: No Symptoms Musculoskeletal: Reports: Hand Pain (bilateral pain, swelling. ) Skin: Reports: Wound (multiple puncture wounds bilateral hands) Neurological: Reports: No Symptoms Psychiatric: Reports: Anxiety Hematologic/Lymphatic: Reports: No Symptoms Immunologic: Reports: No Symptoms ED EXAM, SKIN/RASH Exam: See Below Exam Limited By: No Limitations General Appearance: Alert, WD/WN, No Apparent Distress, Anxious Eye Exam: Bilateral Eye: Normal Inspection, PERRL Ears: Normal External Exam, Normal Canal, Hearing Grossly Normal, Normal TMs Nose: Normal Inspection, Normal Mucosa, No Blood Throat/Mouth: Normal Inspection, Normal Lips, Normal Teeth, Normal Gums, Normal Oropharynx, Normal Voice, No Airway Compromise Head: Atraumatic, Normocephalic Neck: Normal Inspection, Supple, Non-Tender, Full Range of Motion Respiratory/Chest: No Respiratory Distress, Lungs Clear, Normal Breath Sounds, No Accessory Muscle Use, Chest Non-Tender Cardiovascular: Normal Peripheral Pulses, Regular Rate, Rhythm, No Edema, No Gallop, No JVD, No Murmur, No Rub Peripheral Pulses: 2+: Radial (L), Radial (R), Posterior Tibial (L), Posterior Tibial (R) GI/Abdominal: Soft, Non-Tender Back Exam: Normal Inspection, Full Range of Motion. No: Decreased Range of Motion, Muscle Spasm, Paraspinal Tenderness, Vertebral Tenderness Extremities: No Pedal Edema, Normal Capillary Refill, Other (Right hand multiple small puncture wounds palm and dorsal aspect. Abrasion/eccyhmosis Right upper arm, no tenderness. Left hand proximal 1st digit dorsal aspect tear/ laceration (not repairable). puncture wounds left dorsal hand. Please see images taken by RN. Large abrasion left upper arm. Bilateral hands welling, pain ,tenderness. Pulses +2, cap refill < sec, sensory/motor function itnact. Neurovascular intact. ) Neurological: Alert, Oriented, Normal Cognition, Normal Gait Psychiatric: Normal Affect, Normal Mood Skin: Warm, Dry, Normal Color, No Rash, Wound/Incision (puncture wounds bialteral hands. See images from RN. ) Location, Skin: Upper Extremity, Right, Upper Extremity, Left Associated features: Tenderness, Swelling Course - Vital Signs Last Recorded V/S: Last Vital Signs Temp 96 F 03/15/18 10:26 Pulse 108 H 03/15/18 10:26 Resp 20 03/15/18 10:26 BP 131/103 H 03/15/18 10:26 Pulse Ox 98 03/15/18 10:26 - Orders/Labs/Meds Orders: Active Orders 24 hr Category Date Time Status Hand Comp Min 3V Lt [CR] Stat Exams 03/15/18 10:54 Ordered Hand Comp Min 3V Rt [CR] Stat Exams 03/15/18 10:54 Ordered Meds: Medications Discontinued Medications Generic Name Dose Route Start Last Admin Trade Name Freq PRN Reason Stop Dose Admin Hydrocodone Bitart/Acetaminophen 3 packet 03/15/18 11:21 Take Home: Acetaminophen/Hydrocod, 2 Tab Pack PO 03/15/18 11:22 ONETIME ONE Ceftriaxone Sodium 1 gm 09/30/18 10:54 Rocephin IM 03/15/18 10:55 ONETIME ONE Lidocaine HCl 20 ml 03/15/18 10:54 Xylocaine 1% INJECT 03/15/18 10:55 ONETIME ONE Morphine Sulfate 4 mg 03/15/18 11:17 Morphine IM 03/15/18 11:18 ONETIME ONE Ondansetron HCl 4 mg 03/15/18 11:17 Zofran Odt PO 03/15/18 11:18 ONETIME ONE - Radiology Interpretation Free Text/Narrative:: Bilateral hands: No FBs, No fractures. Soft tissue swelling. Departure - Departure Time of Disposition: 11:25 Disposition: Home, Self-Care 01 Condition: Fair Clinical Impression: Puncture wound - injury - Discharge Information *PRESCRIPTION DRUG MONITORING PROGRAM REVIEWED*: No *COPY OF PRESCRIPTION DRUG MONITORING REPORT IN PATIENT LEONARD: No Instructions: Animal Bite, [id number], Puncture Wound, [id number] Referrals: Roque Agustin MD [Primary Care Provider] - Forms: ED Department Discharge Additional Instructions: Followup with your primary care provider Return to the ER for worsening of condition or any emergent concerns such as increased redness, fever, vomiting, drainage. Wash wounds with soap and water three times a day, apply neosporin Rest Ice Elevate IbuProfen over the counter as needed for pain [place] 5/325mg 1-2 pills every 4-6 hours as needed for pain #20 no refill: #6 take home. Augmentin 875mg 1 pill twice a day for 10 days #20 no refill - My Orders Last 24 Hours: My Active Orders 03/15/18 10:54 Hand Comp Min 3V Lt [CR] Stat Hand Comp Min 3V Rt [CR] Stat - Assessment/Plan Last 24 Hours: My Active Orders 03/15/18 10:54 Hand Comp Min 3V Lt [CR] Stat Hand Comp Min 3V Rt [CR] Stat
[2018-03-15] MEDS: Take Home: Acetaminophen/HYDROcodone 325-5 MG, 2 Tab Pack PO ONE (11:30)
[2018-03-15] MEDS: Morphine 4 MG/ML Syringe IM ONE (11:30)
[2018-03-15] MEDS: Lidocaine 1% 20 ML MDV INJECT ONE (11:30)
[2018-03-15] MEDS: cefTRIAXone 1 GM Vial IM ONE (11:30)
[2018-03-15] MEDS: Ondansetron 4 MG Tab.DIS PO ONE (11:30)
== END 2018-03-15 11:47 | disposition home or self-care (01) ==
LOC: CC.ED 10:26
DX: S61.432A Puncture wound without foreign body of left hand, initial encounter (principal); S61.431A Puncture wound without foreign body of right hand, initial encounter; S40.021A Contusion of right upper arm, initial encounter; S40.812A Abrasion of left upper arm, initial encounter; W54.0XXA Bitten by dog, initial encounter; Z88.2 Allergy status to sulfonamides; Z91.040 Latex allergy status; E66.9 Obesity, unspecified; F17.210 Nicotine dependence, cigarettes, uncomplicated
CPT/HCPCS: 73130; 96372; 99283; A9270; J0696; J2270

== ENCOUNTER 2018-07-16 10:28 | Inpatient (IN) | payer MEDICARE, OTHER ==
[2018-07-16] MEDS ORDERED: Cyclobenzaprine 10 MG Tab PO PRN (14:54)
[2018-07-16] MEDS ORDERED: Acetaminophen 325 MG Tab PO PRN (14:54)
[2018-07-16] MEDS ORDERED: Docusate Sodium 100 MG Cap PO PRN (14:54)
[2018-07-16] MEDS ORDERED: Non-Formulary Medication 1 Each (Naproxen Sodium [Aleve] 220 MG) PO PRN (16:04)
--- NOTE | 2018-07-16 16:12 | PCM.HP ---
H&P History of Present Illness - General Date of Service: 07/16/18 Admit Problem/Dx: Admission Diagnosis/Problem Admission Diagnosis/Problem Knee joint operation Source of Information: Patient History Limitations: Reports: No Limitations - History of Present Illness Initial Comments - Free Text/Narative: [place] [facility] [place]. States she feels the knee is doing well but she is having ongoing problems with her right hip. She relates she fell a while back and landed on her right knee, which had previous total knee as well. Dr. Edmonds did feel she had bone spurs and did not require any intervention at this time. She feels her ambulation is hampered by this. [place] [facility] [place] transferred here for strengthening/ rehab with PT as she does live alone and unable yet to perform all ADLs. Duration of Symptoms: Reports: Day(s): Location: Reports: Lower Extremity, Left Quality: Reports: Throbbing Severity: Moderate Improves with: Reports: Medication, Rest Worsens with: Reports: Movement Associated Symptoms: Denies: Confusion, Chest Pain, Cough, Fever/Chills, Loss of Appetite, Nausea/Vomiting, Shortness of Breath, Weakness Left Knee Pain Score (Numeric/FACES): 3 Right Hip Pain Score (Numeric/FACES): 7 - Related Data Allergies/Adverse Reactions: Allergies Allergy/AdvReac Type Severity Reaction Status Date / Time acetaminophen Allergy Hypertensio Verified 07/16/18 11:56 [From Excedrin Extra n Strength] adhesive Allergy Itching Verified 07/16/18 11:56 aspirin Allergy Hypertensio Verified 07/16/18 11:56 [From Excedrin Extra n Strength] caffeine Allergy Hypertensio Verified 07/16/18 11:56 [From Excedrin Extra n Strength] ibuprofen Allergy Hypertensio Verified 07/16/18 11:56 n latex Allergy Blisters Verified 03/15/18 10:28 Sulfa (Sulfonamide Allergy Anaphylactic Verified 03/15/18 10:28 Antibiotics) Shock Home Medications: Home Meds clonazePAM [Clonazepam] 1 mg PO Q8H 12/06/15 [History] buPROPion HCl [Wellbutrin SR] 150 mg PO BID 03/25/17 [History] Ascorbate Calcium [Vitamin C] 1,000 mg PO BID 07/16/18 [History] Calcium Carbonate [Calcium] 1,000 mg PO BID 07/16/18 [History] Calcium Carbonate [Calcium] 1,200 mg PO BID 07/16/18 [History] Cholecalciferol (Vitamin D3) [Vitamin D3] 10,000 unit PO BEDTIME 07/16/18 [ History] Eszopiclone 1 mg PO BEDTIME 07/16/18 [History] Eszopiclone 3 mg PO BEDTIME 07/16/18 [History] Fish Oil/Borage/Flax/Om3,6,9#1 [[place] 3-6-9 Complex Softgel] 400 mg PO DAILY [History] Fish Oil/[place]-3 Fatty Acids [Fish Oil 1,000 MG] 1,000 mg PO DAILY 07/16/18 [ History] Magnesium Oxide [Magnesium] 400 mg PO DAILY 07/16/18 [History] Naproxen Sodium [Aleve] 220 mg PO BID PRN 07/16/18 [History] Topiramate 100 mg PO BID 07/16/18 [History] Vitamin E 800 unit PO DAILY 07/16/18 [History] diazePAM [Valium] 5 mg PO Q8H PRN 07/16/18 [History] Past Medical History Gastrointestinal History: Reports: Chronic Diarrhea, Diverticulosis Genitourinary History: Reports: Urinary Incontinence, Other (See Below) Other Genitourinary History: frequent urination [employer]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: Dysfunctional Uterine Bleeding, Endometriosis, Polycystic Ovaries Musculoskeletal History: Reports: Back Pain, Chronic, Fracture, Fibromyalgia, Neck Pain, Chronic, Osteoarthritis Neurological History: Reports: Neuropathy, Peripheral Psychiatric History: Reports: Anxiety, Bipolar, Depression, Panic Attack Endocrine/Metabolic History: Reports: Obesity/BMI 30+ Dermatologic History: Reports: Eczema - Past Surgical History HEENT Surgical History: Reports: Oral Surgery, Tonsillectomy GI Surgical History: Reports: Colonoscopy, Polypectomy Female Surgical History: Reports: Hysterectomy Endocrine Surgical History: Reports: None Neurological Surgical History: Reports: None Musculoskeletal Surgical History: Reports: Arthroscopic Knee, Knee Replacement Social & Family History - Family History Family Medical History: Noncontributory GI: Reports: Cirrhosis - Tobacco Use Smoking Status *Q: Current Every Day Smoker Years of Tobacco use: 35 Packs/Tins Daily: 1 - Caffeine Use Caffeine Use: Reports: Coffee, Soda H&P Review of Systems - Review of Systems: Review Of Systems: See Below General: Reports: Weakness, Fatigue. Denies: Fever, Chills, Malaise, Decreased Appetite HEENT: Reports: No Symptoms Pulmonary: Denies: Shortness of Breath, Cough Cardiovascular: Denies: Chest Pain, Edema, Lightheadedness Gastrointestinal: Denies: Abdominal Pain, Constipation, Diarrhea, Nausea, Vomiting Genitourinary: Reports: No Symptoms Musculoskeletal: Reports: Leg Pain, Joint Pain Skin: Reports: Other (incision to left knee) Psychiatric: Reports: No Symptoms Exam - Exam Exam: See Below - Vital Signs Vital Signs: Last Vital Signs Temp 99 F 07/16/18 14:33 Pulse 114 H 07/16/18 14:33 Resp 18 07/16/18 14:33 BP 120/68 07/16/18 14:33 Pulse Ox 99 07/16/18 14:33 Weight: 284 lb 6.4 oz - Exam General: Alert, Oriented HEENT: Conjunctiva Clear, Normal Nasal Septum, Posterior Pharynx Clear, TMs Clear Neck: Supple Lungs: Clear to Auscultation, Normal Respiratory Effort Cardiovascular: Regular Rate, Regular Rhythm GI/Abdominal Exam: Normal Bowel Sounds, Soft, Non-Tender Extremities: No Pedal Edema, Other (patient left knee has mild effusion. Bandage intact. No surrounding erythema. Limited range of motion as expected. ) Skin: Incision Neuro Extensive - Mental Status: Alert, Oriented x3 Psychiatric: Alert, Normal Affect, Normal Mood - Problem List (1) Total knee replacement status SNOMED Code(s): 5432168461494, [id number], [id number] ICD Code: Z96.659 - PRESENCE OF UNSPECIFIED ARTIFICIAL KNEE JOINT Status: Acute Priority: High Current Visit: Yes Qualifiers: Laterality: left Qualified Code(s): Z96.652 - Presence of left artificial knee joint Problem List Initiated/Reviewed/Updated: Yes Orders Last 24hrs: Active Orders 24 hr Category Date Time Status Patient Status [ADT] Routine ADT 07/16/18 14:55 Active Oxygen Therapy [RC] .PRN Care 07/16/18 14:55 Active Up With Assistance [RC] ASDIRECTED Care 07/16/18 14:54 Active Vital Signs [RC] 08 Care 07/16/18 14:55 Active Wound Care [RC] Care 07/17/18 08:00 Active Regular Diet [DIET] Diet 07/16/18 Dinner Active Acetaminophen [Tylenol] Med 07/16/18 14:54 Active 650 mg PO Q4H PRN Acetaminophen/oxyCODONE [Percocet 325-5 MG] Med 07/16/18 14:54 Active 1 tab PO Q4H PRN Ascorbate Calcium [Vitamin C] Med 07/16/18 20:00 Ordered 1,000 mg PO BID Aspirin Med 07/17/18 08:00 Active 81 mg PO WITHBREAKFAST Calcium Carbonate Med 07/16/18 20:00 Ordered 1,200 mg PO BID Calcium Carbonate [Calcium] Med 07/16/18 20:00 Ordered 1,000 mg PO BID Cholecalciferol (Vitamin D3) [Vitamin D3] Med 07/16/18 20:00 Ordered 10,000 unit PO BEDTIME ClonazePAM [KlonoPIN] Med 07/16/18 16:15 Ordered 1 mg PO Q8H Cyclobenzaprine [Flexeril] Med 07/16/18 14:54 Active 5 mg PO TID PRN Docusate Sodium [Colace] Med 07/16/18 14:54 Active 100 mg PO DAILY PRN Eszopiclone Med 07/16/18 20:00 Ordered 1 mg PO BEDTIME Eszopiclone [Eszopiclone] Med 07/16/18 20:00 Ordered 3 mg PO BEDTIME Fish Oil/Borage/Flax/Om3,6,9#1 [[place] 3-6-9 Complex Med 07/17/18 08:00 Ordered Softgel] 400 mg PO DAILY Fish Oil/[place]-3 Fatty Acids [Fish Oil 1,000 MG] Med 07/17/18 08:00 Ordered 1,000 mg PO DAILY Magnesium Oxide [Magnesium] Med 07/17/18 08:00 Ordered 400 mg PO DAILY Naproxen Sodium [Aleve] Med 07/16/18 16:04 Ordered 220 mg PO BID PRN Topiramate [Topamax] Med 07/16/18 20:00 Ordered 100 mg PO BID Vitamin E [Vitamin E] Med 07/17/18 08:00 Ordered 800 unit PO DAILY buPROPion [Wellbutrin SR] Med 07/16/18 20:00 Ordered 150 mg PO BID diazePAM [Valium] Med 07/16/18 16:04 Ordered 5 mg PO Q8H PRN Resuscitation Status Routine Resus Stat 07/16/18 14:54 Ordered Resuscitation Status Routine Resus Stat 07/16/18 14:54 Ordered Medication Orders Acetaminophen (Tylenol) 650 mg PO Q4H PRN PRN Reason: Pain (Mild 1-3)/fever Aspirin (Aspirin) 81 mg PO WITHBREAKFAST [facility] Bupropion HCl (Wellbutrin Sr) 150 mg PO BID [facility] Clonazepam (Klonopin) 1 mg PO Q8H [facility] Cyclobenzaprine HCl (Flexeril) 5 mg PO TID PRN PRN Reason: Muscle Spasm Diazepam (Valium.) 5 mg PO Q8H PRN PRN Reason: Anxiety Docusate Sodium (Colace) 100 mg PO DAILY PRN PRN Reason: Constipation Non-Formulary Medication (Ascorbate Calcium [Vitamin C]) 1,000 mg PO BID [facility] Non-Formulary Medication (Calcium Carbonate [Calcium]) 1,000 mg PO BID [facility] Non-Formulary Medication (Calcium Carbonate) 1,200 mg PO BID [facility] Non-Formulary Medication (Cholecalciferol (Vitamin D3) [Vitamin D3]) 10,000 unit PO BEDTIME [facility] Non-Formulary Medication (Eszopiclone) 1 mg PO BEDTIME [facility] Non-Formulary Medication (Eszopiclone [Eszopiclone]) 3 mg PO BEDTIME [facility] Non-Formulary Medication (Fish Oil/Borage/Flax/Om3,6,9#1 [[place] 3-6-9 Complex Softgel]) 400 mg PO DAILY [facility] Non-Formulary Medication (Fish Oil/[place]-3 Fatty Acids [Fish Oil 1,000 Mg]) 1, 000 mg PO DAILY [facility] Non-Formulary Medication (Magnesium Oxide [Magnesium]) 400 mg PO DAILY [facility] Non-Formulary Medication (Naproxen Sodium [Aleve]) 220 mg PO BID PRN PRN Reason: Pain Non-Formulary Medication (Vitamin E [Vitamin E]) 800 unit PO DAILY [facility] Oxycodone/Acetaminophen (Percocet 325-5 Mg) 1 tab PO Q4H PRN PRN Reason: Pain (moderate 4-6) Topiramate (Topamax) 100 mg PO BID [facility] Assessment/Plan Comment:: Left Total Knee Replacement Admit swing bed for physical therapy and pain control. Dr. Agustin aware of admission and agrees with plan.
[2018-07-16] MEDS ORDERED: ClonazePAM 1 MG Tab PO SCH (16:15)
[2018-07-16] MEDS ORDERED: ESZOPICLONE 1 MG PO SCH (20:00)
[2018-07-16] MEDS ORDERED: CALCIUM CARBONATE 1200 MG PO SCH (20:00)
[2018-07-16] MEDS: Acetaminophen/oxyCODONE 325-5 MG Tab PO PRN (20:36)
[2018-07-16] MEDS: Zolpidem 5 MG Tab PO SCH (20:39)
[2018-07-16] MEDS: Ascorbic Acid 500 MG Tab PO SCH (20:41)
[2018-07-16] MEDS: Topiramate 100 MG Tab PO SCH (20:41)
[2018-07-16] MEDS: Cholecalciferol (Vitamin D3) 1,000 Unit Tab PO SCH (20:41)
[2018-07-16] MEDS: buPROPion 150 MG Tab.SR PO SCH (20:42)
[2018-07-16] MEDS: Calcium Carbonate 500 MG Tab.Chew PO SCH (20:42)
[2018-07-17] MEDS: Acetaminophen/oxyCODONE 325-5 MG Tab PO PRN ×4 (02:12→23:19)
[2018-07-17] MEDS ORDERED: FLAX PO SCH (08:00)
[2018-07-17] MEDS ORDERED: BORAGE PO SCH (08:00)
[2018-07-17] MEDS ORDERED: [UNRECOGNIZED DRUG - OTHER] PO SCH (08:00)
[2018-07-17] MEDS ORDERED: FISH OIL PO SCH (08:00)
[2018-07-17] MEDS ORDERED: Non-Formulary Medication 1 Each (Fish Oil/Omega-3 Fatty Acids [Fish Oil 1,000 Mg] 1,000 MG PO SCH (08:00)
[2018-07-17] MEDS: buPROPion 150 MG Tab.SR PO SCH ×2 (08:12→19:48)
[2018-07-17] MEDS: Ascorbic Acid 500 MG Tab PO SCH ×2 (08:12→19:48)
[2018-07-17] MEDS: Topiramate 100 MG Tab PO SCH ×2 (08:12→19:48)
[2018-07-17] MEDS: Vitamin E (dl-alpha-tocopherol acetate) 400 Unit Cap PO SCH (08:13)
[2018-07-17] MEDS: Calcium Carbonate 500 MG Tab.Chew PO SCH ×2 (08:13→19:49)
[2018-07-17] MEDS: Aspirin 81 MG Tab.Chew PO SCH (08:14)
[2018-07-17] MEDS: ClonazePAM 1 MG Tab PO SCH ×3 (10:59→23:19)
[2018-07-17] MEDS: Zolpidem 5 MG Tab PO SCH (19:48)
[2018-07-17] MEDS: Cholecalciferol (Vitamin D3) 1,000 Unit Tab PO SCH (19:48)
[2018-07-18] MEDS: Ascorbic Acid 500 MG Tab PO SCH ×2 (07:17→20:32)
[2018-07-18] MEDS: Vitamin E (dl-alpha-tocopherol acetate) 400 Unit Cap PO SCH (07:17)
[2018-07-18] MEDS: buPROPion 150 MG Tab.SR PO SCH ×2 (07:18→20:32)
[2018-07-18] MEDS: ClonazePAM 1 MG Tab PO SCH ×3 (07:18→23:14)
[2018-07-18] MEDS: Topiramate 100 MG Tab PO SCH ×2 (07:18→20:32)
[2018-07-18] MEDS: Acetaminophen/oxyCODONE 325-5 MG Tab PO PRN ×3 (07:18→23:13)
[2018-07-18] MEDS: Calcium Carbonate 500 MG Tab.Chew PO SCH ×2 (07:19→20:32)
[2018-07-18] MEDS: Aspirin 81 MG Tab.Chew PO SCH (07:19)
[2018-07-18] MEDS: Zolpidem 5 MG Tab PO SCH (20:32)
[2018-07-18] MEDS: Cholecalciferol (Vitamin D3) 1,000 Unit Tab PO SCH (20:32)
[2018-07-19] MEDS: Acetaminophen/oxyCODONE 325-5 MG Tab PO PRN ×3 (05:50→23:12)
[2018-07-19] MEDS: Calcium Carbonate 500 MG Tab.Chew PO SCH ×2 (07:31→20:11)
[2018-07-19] MEDS: Topiramate 100 MG Tab PO SCH ×2 (07:31→20:12)
[2018-07-19] MEDS: ClonazePAM 1 MG Tab PO SCH ×3 (07:31→23:11)
[2018-07-19] MEDS: Ascorbic Acid 500 MG Tab PO SCH ×2 (07:31→20:11)
[2018-07-19] MEDS: Aspirin 81 MG Tab.Chew PO SCH (07:31)
[2018-07-19] MEDS: Vitamin E (dl-alpha-tocopherol acetate) 400 Unit Cap PO SCH (07:31)
[2018-07-19] MEDS: buPROPion 150 MG Tab.SR PO SCH ×2 (07:31→20:11)
[2018-07-19] MEDS: Zolpidem 5 MG Tab PO SCH (20:11)
[2018-07-19] MEDS: Cholecalciferol (Vitamin D3) 1,000 Unit Tab PO SCH (20:11)
[2018-07-20] MEDS: Acetaminophen/oxyCODONE 325-5 MG Tab PO PRN ×3 (07:29→19:59)
[2018-07-20] MEDS: Calcium Carbonate 500 MG Tab.Chew PO SCH ×2 (08:17→19:54)
[2018-07-20] MEDS: Aspirin 81 MG Tab.Chew PO SCH (08:18)
[2018-07-20] MEDS: Vitamin E (dl-alpha-tocopherol acetate) 400 Unit Cap PO SCH (08:18)
[2018-07-20] MEDS: ClonazePAM 1 MG Tab PO SCH ×2 (08:19→15:47)
[2018-07-20] MEDS: Ascorbic Acid 500 MG Tab PO SCH ×2 (08:19→19:54)
[2018-07-20] MEDS: buPROPion 150 MG Tab.SR PO SCH ×2 (08:19→19:54)
[2018-07-20] MEDS: Topiramate 100 MG Tab PO SCH ×2 (08:19→19:54)
[2018-07-20] MEDS: Cholecalciferol (Vitamin D3) 1,000 Unit Tab PO SCH (19:54)
[2018-07-20] MEDS: Zolpidem 5 MG Tab PO SCH (19:54)
[2018-07-20] MEDS: Diazepam 5 MG Tab PO PRN (21:49)
[2018-07-21] MEDS: ClonazePAM 1 MG Tab PO SCH ×3 (00:18→16:20)
[2018-07-21] MEDS: Acetaminophen/oxyCODONE 325-5 MG Tab PO PRN ×4 (03:04→20:23)
[2018-07-21] MEDS: Calcium Carbonate 500 MG Tab.Chew PO SCH ×2 (07:48→20:22)
[2018-07-21] MEDS: Vitamin E (dl-alpha-tocopherol acetate) 400 Unit Cap PO SCH (07:48)
[2018-07-21] MEDS: Ascorbic Acid 500 MG Tab PO SCH ×2 (07:48→20:23)
[2018-07-21] MEDS: buPROPion 150 MG Tab.SR PO SCH ×2 (07:49→20:22)
[2018-07-21] MEDS: Topiramate 100 MG Tab PO SCH ×2 (07:49→20:23)
[2018-07-21] MEDS: Aspirin 81 MG Tab.Chew PO SCH (07:50)
[2018-07-21] MEDS: Zolpidem 5 MG Tab PO SCH (20:22)
[2018-07-21] MEDS: Cholecalciferol (Vitamin D3) 1,000 Unit Tab PO SCH (20:23)
[2018-07-21] MEDS: Diazepam 5 MG Tab PO PRN (20:28)
[2018-07-22] MEDS: ClonazePAM 1 MG Tab PO SCH ×4 (00:01→23:52)
[2018-07-22] MEDS: Acetaminophen/oxyCODONE 325-5 MG Tab PO PRN ×4 (03:30→20:06)
[2018-07-22] MEDS: Aspirin 81 MG Tab.Chew PO SCH (07:43)
[2018-07-22] MEDS: Ascorbic Acid 500 MG Tab PO SCH ×2 (07:44→20:04)
[2018-07-22] MEDS: Topiramate 100 MG Tab PO SCH ×2 (07:44→20:06)
[2018-07-22] MEDS: Calcium Carbonate 500 MG Tab.Chew PO SCH ×2 (07:44→20:04)
[2018-07-22] MEDS: buPROPion 150 MG Tab.SR PO SCH ×2 (07:45→20:05)
[2018-07-22] MEDS: Vitamin E (dl-alpha-tocopherol acetate) 400 Unit Cap PO SCH (07:45)
[2018-07-22] MEDS: Diazepam 5 MG Tab PO PRN ×2 (07:58→20:05)
[2018-07-22] MEDS: Zolpidem 5 MG Tab PO SCH (20:04)
[2018-07-22] MEDS: Cholecalciferol (Vitamin D3) 1,000 Unit Tab PO SCH (20:05)
[2018-07-23] MEDS: Acetaminophen/oxyCODONE 325-5 MG Tab PO PRN ×3 (06:42→23:07)
[2018-07-23] MEDS: Aspirin 81 MG Tab.Chew PO SCH (07:46)
[2018-07-23] MEDS: Ascorbic Acid 500 MG Tab PO SCH ×2 (07:46→20:31)
[2018-07-23] MEDS: Vitamin E (dl-alpha-tocopherol acetate) 400 Unit Cap PO SCH (07:46)
[2018-07-23] MEDS: ClonazePAM 1 MG Tab PO SCH ×3 (07:46→23:43)
[2018-07-23] MEDS: Topiramate 100 MG Tab PO SCH ×2 (07:46→20:32)
[2018-07-23] MEDS: buPROPion 150 MG Tab.SR PO SCH ×2 (07:46→20:31)
[2018-07-23] MEDS: Calcium Carbonate 500 MG Tab.Chew PO SCH ×2 (07:46→20:30)
[2018-07-23] MEDS: Cholecalciferol (Vitamin D3) 1,000 Unit Tab PO SCH (20:30)
[2018-07-23] MEDS: Zolpidem 5 MG Tab PO SCH (20:32)
[2018-07-23] MEDS: Diazepam 5 MG Tab PO PRN (23:08)
[2018-07-24] MEDS: Acetaminophen/oxyCODONE 325-5 MG Tab PO PRN ×2 (05:02→09:15)
[2018-07-24] MEDS: Topiramate 100 MG Tab PO SCH (08:10)
[2018-07-24] MEDS: ClonazePAM 1 MG Tab PO SCH (08:10)
[2018-07-24] MEDS: buPROPion 150 MG Tab.SR PO SCH (08:10)
[2018-07-24] MEDS: Vitamin E (dl-alpha-tocopherol acetate) 400 Unit Cap PO SCH (08:10)
[2018-07-24] MEDS: Aspirin 81 MG Tab.Chew PO SCH (08:10)
[2018-07-24] MEDS: Ascorbic Acid 500 MG Tab PO SCH (08:10)
[2018-07-24] MEDS: Calcium Carbonate 500 MG Tab.Chew PO SCH (08:10)
[2018-07-24] MEDS: Diazepam 5 MG Tab PO PRN (08:15)
[2018-07-24 09:14] VITALS: BP 116/62
--- NOTE | 2018-07-26 21:04 | PCM.DCSUM1 ---
Discharge Summary - Hospital Course Free Text/Narrative:: [place] [facility] [place]. Admitted for ongoing physical therapy and pain control. She is also dealing with right hip pain which is slowing her recovery. Left knee swollen, bandage intact. No surrounding erythema. Diagnosis: Stroke: No Modified Lupis Scale: No Symptoms at All Modified Lupis Scale Score: 0 - Discharge Data Discharge Date: 07/24/18 Discharge Disposition: Home, W Home Health Agency Condition: Good - Discharge Diagnosis/Problem(s) (1) Total knee replacement status SNOMED Code(s): 2252039274054, [id number], [id number] ICD Code: Z96.659 - PRESENCE OF UNSPECIFIED ARTIFICIAL KNEE JOINT Status: Acute Priority: High Qualifiers: Laterality: left Qualified Code(s): Z96.652 - Presence of left artificial knee joint - Patient Summary/Data Complications: none Consults: Consultations 07/17/18 08:34 Consult to Physical Therapy [PT Evaluation and Treatment] [CONS] Routine Hospital Course: Patient has done well during stay. She is ambulating well with the walker. Has been working on stairs. Did get a commode to have at home in the event she is having difficulty with stairs due to different levels in home. Continues to have right hip pain along with the left knee discomfort. Incision well approximated. Bandage was changed earlier this week. [place] intact, mild erythema noted to medial lower incision but no real warmth, no drainage. Tolerating pain with meds. - Patient Instructions Diet: Usual Diet as Tolerated Activity: As Tolerated - Discharge Plan *PRESCRIPTION DRUG MONITORING PROGRAM REVIEWED*: No *COPY OF PRESCRIPTION DRUG MONITORING REPORT IN PATIENT LEONARD: No Prescriptions/Med Rec: Acetaminophen/oxyCODONE [Percocet 325-5 MG] 1 tab PO Q4H PRN #30 tablet PRN Reason: Pain (Moderate 4-6) Aspirin 81 mg PO WITHBREAKFAST #30 tab.chew Home Medications: Home Meds clonazePAM [Clonazepam] 1 mg PO Q8H 12/06/15 [History] buPROPion HCl [Wellbutrin SR] 150 mg PO BID 03/25/17 [History] Ascorbate Calcium [Vitamin C] 1,000 mg PO BID 07/16/18 [History] Calcium Carbonate [Calcium] 1,000 mg PO BID 07/16/18 [History] Calcium Carbonate [Calcium] 1,200 mg PO BID 07/16/18 [History] Cholecalciferol (Vitamin D3) [Vitamin D3] 10,000 unit PO BEDTIME 07/16/18 [ History] Eszopiclone 1 mg PO BEDTIME 07/16/18 [History] Eszopiclone 3 mg PO BEDTIME 07/16/18 [History] Fish Oil/Borage/Flax/Om3,6,9#1 [[place] 3-6-9 Complex Softgel] 400 mg PO DAILY [History] Fish Oil/[place]-3 Fatty Acids [Fish Oil 1,000 MG] 1,000 mg PO DAILY 07/16/18 [ History] Magnesium Oxide [Magnesium] 400 mg PO DAILY 07/16/18 [History] Naproxen Sodium [Aleve] 220 mg PO BID PRN 07/16/18 [History] Topiramate 100 mg PO BID 07/16/18 [History] Vitamin E 800 unit PO DAILY 07/16/18 [History] diazePAM [Valium] 5 mg PO Q8H PRN 07/16/18 [History] Acetaminophen/oxyCODONE [Percocet 325-5 MG] 1 tab PO Q4H PRN #30 tablet [Rx] Aspirin 81 mg PO WITHBREAKFAST #30 tab.chew 07/24/18 [Rx] Referrals: Roque Edmonds MD [Physician] - (Follow up with Dr. Edmonds as planned next week) - Discharge Summary/Plan Comment DC Time >30 min.: No Discharge Summary/Plan Comment: Discharge home with Home Health Nursing to continue to monitor pain level, blood pressure and home safety/ adaptations for home Physical Therapy to continue to provide exercises/strengthening due to total knee as well as chronic right hip pain and previous right total knee Patient is homebound due to inability to drive because of immobility/limited range of motion, pain medications Dr. Agustin will oversee home health care - General Info Date of Service: 07/24/18 Admission Dx/Problem (Free Text: Admission Diagnosis/Problem Admission Diagnosis/Problem Knee joint operation Functional Status: Reports: Pain Controlled, Tolerating Diet, Ambulating - Review of Systems General: Reports: Weakness HEENT: Reports: No Symptoms Pulmonary: Denies: Shortness of Breath, Cough Cardiovascular: Denies: Chest Pain, Edema, Lightheadedness Gastrointestinal: Denies: Abdominal Pain, Nausea, Vomiting Genitourinary: Reports: No Symptoms Musculoskeletal: Reports: Leg Pain, Joint Pain Skin: Reports: Other (incision) Neurological: Reports: No Symptoms - Patient Data Vitals - Most Recent: Last Vital Signs Temp 98 F 07/24/18 08:00 Pulse 88 07/24/18 08:00 Resp 18 07/24/18 08:00 BP 116/62 07/24/18 08:00 Pulse Ox 96 07/24/18 08:00 Weight - Most Recent: 291 lb 9.6 oz Med Orders - Current: Current Medications Discontinued Medications Acetaminophen (Tylenol) 650 mg PO Q4H PRN PRN Reason: Pain (Mild 1-3)/fever Ascorbic Acid (Vitamin C) 1,000 mg PO BID [facility] Last Admin: 07/24/18 08:10 Dose: 1,000 mg Aspirin (Aspirin) 81 mg PO WITHBREAKFAST [facility] Last Admin: 07/24/18 08:10 Dose: 81 mg Bupropion HCl (Wellbutrin Sr) 150 mg PO BID [facility] Last Admin: 07/24/18 08:10 Dose: 150 mg Calcium Carbonate/Glycine (Tums) 1,000 mg PO BID [facility] Last Admin: 07/24/18 08:10 Dose: 1,000 mg Cholecalciferol (Vitamin D3) 2,000 units PO BEDTIME [facility] Last Admin: 07/23/18 20:30 Dose: 2,000 units Clonazepam (Klonopin) 1 mg PO TID [facility] Last Admin: 07/16/18 16:31 Dose: 1 mg Clonazepam (Klonopin) 1 mg PO 0000,0800,1600 [facility] Last Admin: 07/24/18 08:10 Dose: 1 mg Cyclobenzaprine HCl (Flexeril) 5 mg PO TID PRN PRN Reason: Muscle Spasm Last Admin: 07/21/18 07:48 Dose: 5 mg Diazepam (Valium.) 5 mg PO Q8H PRN PRN Reason: Anxiety Last Admin: 07/24/18 08:15 Dose: 5 mg Docusate Sodium (Colace) 100 mg PO DAILY PRN PRN Reason: Constipation Magnesium Oxide (Magnesium Oxide) 250 mg PO DAILY [facility] Last Admin: 07/24/18 08:10 Dose: 250 mg Non-Formulary Medication (Calcium Carbonate) 1,200 mg PO BID [facility] Non-Formulary Medication (Eszopiclone) 1 mg PO BEDTIME [facility] Non-Formulary Medication (Fish Oil/Borage/Flax/Om3,6,9#1 [[place] 3-6-9 Complex Softgel]) 400 mg PO DAILY [facility] Non-Formulary Medication (Fish Oil/[place]-3 Fatty Acids [Fish Oil 1,000 Mg]) 1, 000 mg PO DAILY [facility] Non-Formulary Medication (Naproxen Sodium [Aleve]) 220 mg PO BID PRN PRN Reason: Pain Oxycodone/Acetaminophen (Percocet 325-5 Mg) 1 tab PO Q4H PRN PRN Reason: Pain (moderate 4-6) Last Admin: 07/24/18 09:15 Dose: 1 tab Topiramate (Topamax) 100 mg PO BID [facility] Last Admin: 07/24/18 08:10 Dose: 100 mg Vitamin E (Vitamin E) 800 units PO DAILY [facility] Last Admin: 07/24/18 08:10 Dose: 800 units Zolpidem Tartrate (Ambien) 10 mg PO BEDTIME [facility] Last Admin: 07/23/18 20:32 Dose: 10 mg - Exam General: Reports: Alert, Oriented HEENT: Reports: Mucous Membr. Moist/[place] Neck: Reports: Supple Lungs: Reports: Clear to Auscultation, Normal Respiratory Effort Cardiovascular: Reports: Regular Rate, Regular Rhythm GI/Abdominal Exam: Normal Bowel Sounds, Soft, Non-Tender Extremities: Other (Bandage intact to left knee, swelling noted. ) Wound/Incisions: Reports: Dressing Dry and Intact Neurological: Reports: No New Focal Deficit
== END 2018-07-24 12:53 | disposition home health service (06) | DRG 560 ==
LOC: UNDOADMIN 14:14 → CC.MS 14:14
PROVIDERS: ADMIT Family Medicine; ATTEND Family Medicine
DX: Z47.1 Aftercare following joint replacement surgery (principal); Z68.42 Body mass index [BMI] 45.0-49.9, adult; M25.551 Pain in right hip; G89.29 Other chronic pain; M54.2 Cervicalgia; M19.90 Unspecified osteoarthritis, unspecified site; F41.9 Anxiety disorder, unspecified; F31.9 Bipolar disorder, unspecified; F41.0 Panic disorder [episodic paroxysmal anxiety]; F17.210 Nicotine dependence, cigarettes, uncomplicated; E66.9 Obesity, unspecified; G62.9 Polyneuropathy, unspecified; Z96.652 Presence of left artificial knee joint; Z79.82 Long term (current) use of aspirin; Z79.899 Other long term (current) drug therapy; Z88.6 Allergy status to analgesic agent; Z91.040 Latex allergy status; Z88.2 Allergy status to sulfonamides; Z88.8 Allergy status to other drugs, medicaments and biological substances; Z91.018 Allergy to other foods; Z91.048 Other nonmedicinal substance allergy status; Z98.890 Other specified postprocedural states; Z90.710 Acquired absence of both cervix and uterus
CPT/HCPCS: 97110-GP; 97116-GP; 97161-GP; 97530-GP; A9270-GY